=== PATIENT | male | born 1975 | race Caucasian/White ===

== ENCOUNTER 2017-07-20 05:32 | Emergency (ER) | payer OTHER ==
[2017-07-20 05:57] VITALS: BMI 42.5
[2017-07-20] MEDS ORDERED: KETOROLAC TROMETHAMINE 30 MG/1 ML VIAL IVPUSH ONE (06:05)
[2017-07-20] MEDS ORDERED: METOCLOPRAMIDE HCL INJECTION 10 MG/2 ML VIAL IVPUSH ONE (06:05)
[2017-07-20] MEDS ORDERED: SODIUM CHLORIDE 0.9% 1000 ML INFUS.BAG IV ONE (06:05)
--- NOTE | 2017-07-20 06:05 | PDOC ---
History of Present Illness - General Chief Complaint: Headache Stated Complaint: HEADACHE Time Seen by Provider: 07/20/17 05:41 - History of Present Illness Initial Comments: 07/20/17 06:04 CHIEF COMPLAINT: headache HISTORY OF PRESENT ILLNESS: 41 yo M with hx of HLD presents to ED with headache since 7-8 pm last night. Patient stats he has had a history of headaches but tonight it is worse. Patient states the pain is behind his eyes and is covering his face in exam room to shield himself from the light. He denies any dizziness , LOC, weakness, blurry vision. Patient reports taking ibuprofen last night without relief. He vomited one time and still feels nauseous right now. No recent travel or sick contacts. PAST MEDICAL HISTORY: Denies past medical history FAMILY HISTORY: Denies SOCIAL HISTORY: Denies tobacco, alcohol, illicit drug use. SURGICAL HISTORY: Denies ALLERGIES: No known drug allergies REVIEW OF SYSTEMS General/Constitutional: Denies fever or chills. HEENT: Denies change in vision. Denies ear pain or discharge. Denies sore throat. Cardiovascular: Denies chest pain or shortness of breath. Respiratory: Denies cough, wheezing, or hemoptysis. Gastrointestinal: Nausea, 1 episode of vomiting. Genitourinary: Denies dysuria, frequency, or change in urination. Musculoskeletal: Denies joint or muscle swelling or pain. Denies neck or back pain. Skin and breasts: Denies rash or easy bruising. Neurologic:Headache. Denies vertigo, loss of consciousness, or loss of sensation. PHYSICAL EXAM General Appearance: Well-appearing, appropriately dressed. No apparent distress. HEENT: Photophobia. EOMI, PERRLA, normal ENT inspection, normal voice, TMs normal, pharynx normal. No conjunctival pallor. Respiratory/Chest: Lungs CTAB. Cardiovascular: RRR. S1, S2. Gastrointestinal/Abdominal: Normal bowel sounds. Abdomen soft, non-distended. No tenderness or rebound tenderness. No organomegaly, pulsatile mass, guarding , hernia, hepatomegaly, splenomegaly. Musculoskeletal/Extremities: Normal inspection. FROM of all extremities, normal capillary refill. Pelvis Stable. No CVA tenderness. No tenderness to extremities, pedal edema, swelling, erythema or deformity. Integumentary: Appropriate color, dry, warm. No cyanosis, erythema, jaundice or rash Neurologic: ophthalmology surgical technician II-XII intact. Fully oriented, alert. Appropriate mood/affect. Motor strength 5/5. No appreciable EOM palsy, facial droop or sensory deficit.A &Ox3, follow commands, respond appropriately CN2-12: conjugate gaze, pupil round, equal and reactive to light. Visual field full to confrontation. EOMI without nystagmus, pursuit is smooth without saccade. Facial sensation and muscle activation intact bilaterally. Hearing intact bilaterally. Palate elevate symmetrically. Shoulder shrug and neck turn full strength. Tongue protrude midline. Motor: UE and LE strength 5/5 throughout bilaterally. Muscle tone and bulk normal. Cerebellar: Rapid-alternating movement with regular rhythm without bradykinesia. [id number] and [id number] intact bilaterally without dysmetria or overshoot. Gait narrow based. No shuffling. Full hip flexion and knee flexion. Negative Romberg No involuntary movement noted. No pronator drift. No clonus. Past History - Past Medical History Allergies/Adverse Reactions: Allergies Allergy/AdvReac Type Severity Reaction Status Date / Time No Known Allergies Allergy Verified 07/20/17 05:56 Home Medications: Ambulatory Orders NK [No Known Home Medication] 07/20/17 - Suicide/Smoking/Psychosocial Hx Smoking History: Never smoked Have you smoked in the past 12 months: No Information on smoking cessation initiated: No Hx Alcohol Use: No Drug/Substance Use Hx: No *Physical Exam - Vital Signs Last Vital Signs Temp Pulse Resp BP Pulse Ox 97.6 F 103 H 20 177/77 97 07/20/17 05:56 07/20/17 05:56 07/20/17 05:56 07/20/17 05:56 07/20/17 05:56 Medical Decision Making - Medical Decision Making 07/20/17 06:14 41 yo M with hx of HLD presents to ED with headache since 7-8 pm last night. -IVF, Toradol, Reglan, Benadryl Will reassess after administration of meds. Case discussed in detail with oncoming emergency provider including history, physical exam and ancillary studies. In brief, this patient is being seen in the ED for a chief complaint of: headache I have completed the initial assessment interview note and have ordered the following labs: none I have reviewed the following results: none Pending results: reassess after meds Plan for disposition as follows: pending Oncoming MARIE Joseph has assumed care for the patient and will complete the evaluation and treatment. *DC/Admit/Observation/Transfer Diagnosis at time of Disposition: Headache Qualifiers: Headache type: unspecified Headache chronicity pattern: acute headache Intractability: intractable Qualified Code(s): R51 - Headache - Discharge Dispostion Disposition: HOME Condition at time of disposition: Improved - Patient Instructions Printed Discharge Instructions: DI for Headache Additional Instructions: At this time I recommend taking 600 mg of Motrin every 8 hours as needed for discomfort and if no relief may use 975 mg of Tylenol. Also avoid triggers such as bright light, and hot and noisy areas. If symptoms return, Go to the nearest ER.
[2017-07-20] MEDS ORDERED: METOCLOPRAMIDE HCL INJECTION 10 MG/2 ML VIAL ONE (06:44)
[2017-07-20] MEDS ORDERED: KETOROLAC TROMETHAMINE 30 MG/1 ML VIAL ONE (06:44)
--- NOTE | 2017-07-20 07:33 | PDOC ---
*Physical Exam - Vital Signs Last Vital Signs Temp Pulse Resp BP Pulse Ox 97.6 F 103 H 20 177/77 97 07/20/17 05:56 07/20/17 05:56 07/20/17 05:56 07/20/17 05:56 07/20/17 05:56 ED Treatment Course - Medications Given in the ED: ED Medications Discontinued Medications Generic Name Dose Route Start Last Admin Trade Name Annika PRN Reason Stop Dose Admin Diphenhydramine HCl 25 mg 07/20/17 06:05 07/20/17 06:51 Benadryl Injection - IVPUSH 07/20/17 06:06 25 mg ONCE ONE Administration Ketorolac Tromethamine 30 mg 07/20/17 06:05 07/20/17 06:52 Toradol Injection - IVPUSH 07/20/17 06:06 30 mg ONCE ONE Administration Metoclopramide HCl 10 mg 07/20/17 06:05 07/20/17 06:51 Reglan Injection - IVPUSH 07/20/17 06:06 10 mg ONCE ONE Administration Sodium Chloride 1,000 ml 07/20/17 06:05 07/20/17 06:51 Normal Saline - IV 07/20/17 06:06 1,000 ml ONCE ONE Administration Medical Decision Making - Medical Decision Making 07/20/17 07:33 Patient received in sign out from AROLDO Bocanegra. Patient with complaints of headache unrelieved with Motrin and cause him difficulty sleeping and 2 episodes of vomiting. Patient states history of migraines and states was given a medication to decrease his appetite earlier this week. Patient currently asymptomatic. Family at bedside area. patient receiving IV fluids. Will discharge upon completion. 07/20/17 08:02 Patient requesting to go home. IV fluids completed. Will discharge home with recommendations to take 600 mg of Motrin and if no relief may take denies any Tylenol. *DC/Admit/Observation/Transfer Diagnosis at time of Disposition: Headache Qualifiers: Headache type: unspecified Headache chronicity pattern: acute headache Intractability: intractable Qualified Code(s): R51 - Headache; R51 - Headache - Discharge Dispostion Disposition: HOME Condition at time of disposition: Improved - Patient Instructions Printed Discharge Instructions: DI for Headache Additional Instructions: At this time I recommend taking 600 mg of Motrin every 8 hours as needed for discomfort and if no relief may use 975 mg of Tylenol. Also avoid triggers such as bright light, and hot and noisy areas. If symptoms return, Go to the nearest ER.
[2017-07-20 08:20] VITALS: BP 159/76; PULSE 89; TEMP 97.9
== END 2017-07-20 08:22 | disposition home or self-care (01) ==
LOC: JER 05:32
PROC: 3E0333Z Introduction of Anti-inflammatory into Peripheral Vein, Percutaneous Approach (ICD-10-PCS; principal; 2017-07-20)
PROC: 3E033GC Introduction of Other Therapeutic Substance into Peripheral Vein, Percutaneous Approach (ICD-10-PCS; 2017-07-20)
PROC: 3E033GC Introduction of Other Therapeutic Substance into Peripheral Vein, Percutaneous Approach (ICD-10-PCS; 2017-07-20)
DX: R51 Headache (principal)
CPT/HCPCS: 96374; 96375; 99282-25

== ENCOUNTER 2018-02-22 19:53 | Inpatient (IN) | payer OTHER ==
[2018-02-22 20:04] VITALS: BMI 41.2
--- NOTE | 2018-02-22 20:16 | PDOC ---
History of Present Illness - General Chief Complaint: Headache Stated Complaint: HEADACHE Time Seen by Provider: 02/22/18 20:15 - History of Present Illness Initial Comments: 02/22/18 20:28 Mr. Jones is a 42 yo male w/ pmh of HTN who presents for evaluation of headache since 2pm today. He reports he has previously had similar headaches when his blood pressure was out of control and that he believes this is the source of his headache today as his bp was 193/122 today at triage. He used to take medication for his high blood pressure but has not had a primary care provider since he came here from the [facility]. He would like a referral to PCP after today's encounter. Mr. Jones reports he took 2 motrin at 2pm when the pain started but has continued to have pain. He describes the pain as frontal and feels like a pounding headache. He denies any current phono or photo-phobia. Denies this being the worst headache of his life. The patient denies chest pain, shortness of breath, headache and dizziness. Denies fever, chills, nausea, vomit, diarrhea and constipation. Denies dysuria, frequency, urgency and hematuria. Allergies: NKDA Past History - Past Medical History Allergies/Adverse Reactions: Allergies Allergy/AdvReac Type Severity Reaction Status Date / Time No Known Allergies Allergy Verified 02/22/18 20:04 Home Medications: Ambulatory Orders NK [No Known Home Medication] 07/20/17 COPD: No Other medical history: DENIES - Immunization History Immunization Up to Date: No - Suicide/Smoking/Psychosocial Hx Smoking History: Current some day smoker Have you smoked in the past 12 months: No Number of Cigarettes Smoked Daily: 1 Information on smoking cessation initiated: Yes 'Breaking Loose' booklet given: 02/22/18 Hx Alcohol Use: No Drug/Substance Use Hx: No Substance Use Type: None Review of Systems - Review of Systems Comments:: 02/22/18 20:17 GENERAL/CONSTITUTIONAL: No fever or chills. No weakness. HEAD, EYES, EARS, NOSE AND THROAT: No change in vision. No ear pain or discharge. No sore throat. CARDIOVASCULAR: No chest pain or shortness of breath RESPIRATORY: No cough, wheezing, or hemoptysis. GASTROINTESTINAL: No nausea, vomiting, diarrhea or constipation. GENITOURINARY: No dysuria, frequency, or change in urination. MUSCULOSKELETAL: No joint or muscle swelling or pain. No neck or back pain. SKIN: No rash NEUROLOGIC: +Headache as described. No vertigo, loss of consciousness, or change in strength/sensation. ENDOCRINE: No increased thirst. No abnormal weight change HEMATOLOGIC/LYMPHATIC: No anemia, easy bleeding, or history of blood clots. ALLERGIC/IMMUNOLOGIC: No hives or skin allergy. *Physical Exam - Vital Signs Last Vital Signs Temp Pulse Resp BP Pulse Ox 98.3 F 104 H 18 193/122 100 02/22/18 20:00 02/22/18 20:00 02/22/18 20:00 02/22/18 20:00 02/22/18 20:00 - Physical Exam Comments: 02/22/18 20:17 GENERAL: Awake, alert, and fully oriented, in no acute distress HEAD: No signs of trauma, normocephalic, atraumatic EYES: PERRLA, EOMI, sclera anicteric, conjunctiva clear ENT: Auricles normal inspection, hearing grossly normal, nares patent, oropharynx clear without exudates. Moist mucosa NECK: Normal ROM, supple, no lymphadenopathy, JVD, or masses LUNGS: No distress, speaks full sentences, clear to auscultation bilaterally HEART: Regular rate and rhythm, normal S1 and S2, no murmurs, rubs or gallops, peripheral pulses normal and equal bilaterally. ABDOMEN: Soft, nontender, normoactive bowel sounds. No guarding, no rebound. No masses EXTREMITIES: Normal inspection, Normal range of motion, no edema. No clubbing or cyanosis. NEUROLOGICAL: Cranial nerves II through XII grossly intact. Normal speech, normal gait, no focal sensorimotor deficits SKIN: Warm, Dry, normal turgor, no rashes or lesions noted. ED Treatment Course - LABORATORY CBC & Chemistry Diagram: 02/22/18 21:39 02/22/18 21:39 Medical Decision Making - Medical Decision Making 02/22/18 21:09 Mr. Jones is a 42 yo male w/ pmh of HTN who presents for evaluation of headache. Labetalol 5mg given for symptomatic hypertension. Head CT ordered to r /o bleed. EKG/Troponin ordered to r/o end organ damage. 02/23/18 00:24 Repeat BP 203 / 130. IV labetalol given. 02/23/18 01:22 ST changes concerning for end organ damage due to hypertensive emergency. Patient admitted for further evaluation. *DC/Admit/Observation/Transfer Diagnosis at time of Disposition: Hypertensive emergency - Discharge Dispostion Decision to Admit order: Yes - Referrals - Patient Instructions - Post Discharge Activity
[2018-02-22] MEDS ORDERED: METOCLOPRAMIDE HCL INJECTION 10 MG/2 ML VIAL IVPB ONE (20:32)
[2018-02-22] MEDS ORDERED: LABETALOL HCL 5 MG/1 ML (100MG/20 ML VIAL) IVPUSH ONE (20:32)
--- NOTE | 2018-02-22 21:38 | PDOC ---
Attending Attestation - Resident Resident Name: Amadeo Raya - ED Attending Attestation I have performed the following: I have examined & evaluated the patient, The case was reviewed & discussed with the resident, I agree w/resident's findings & plan, Exceptions are as noted - HPI HPI: 02/22/18 22:31 The patient is a 42 year old male, with a significant past medical history of HTN (noncompliant with medication), who presents to the emergency department with, 7 hours of a headache and elevated blood pressure. The patient describes his headache as gradual onset, global in distribution and similar to previous headaches. As per patient, he is from the [place] where he had a PCP but since moving here in December has not gotten one. He reports he has not taken his medication in several days, however, is unaware of the name of his medication. He reports taking Motrin today, without relief. He reports that he does not have an at home blood pressure cuff thus, he was unable to test his blood pressure. He denies any recent photophobia or phonophobia. He denies any recent fevers, chills, or dizziness. He denies any recent nausea, vomit, diarrhea or constipation. He denies any recent chest pain or shortness of breath. He denies any recent dysuria, frequency, urgency or hematuria. Denies focal weakness, numbness, confusion, or visual disturbance Allergies: NKA Past surgical history: None reported. Social History: Nonsmoker. Denies EtOH use and recreational drug use. - Physicial Exam PE: 02/22/18 22:31 GENERAL: Awake, alert, and fully oriented, in no acute distress HEAD: No signs of trauma EYES: PERRLA, EOMI, sclera anicteric, conjunctiva clear ENT: Auricles normal inspection, hearing grossly normal, nares patent, oropharynx clear without exudates. Moist mucosa NECK: Normal ROM, supple, no lymphadenopathy, JVD, or masses LUNGS: Breath sounds equal, clear to auscultation bilaterally. No wheezes, and no crackles HEART: Regular rate and rhythm, normal S1 and S2, no murmurs, rubs or gallops ABDOMEN: Soft, nontender, normoactive bowel sounds. No guarding, no rebound. No masses EXTREMITIES: Normal range of motion, no edema. No clubbing or cyanosis. No cords, erythema, or tenderness NEUROLOGICAL: Normal speech, cranial nerves intact, negative pronator drift, 5/ 5 strength in all 4 extremities, normal sensation to light touch in all 4 extremities, normal cerebellar exam, normal gait, normal reflexes and tone SKIN: Warm, Dry, normal turgor, no rashes or lesions noted. - Medical Decision Making 02/22/18 21:35 42-year-old male with a history of hypertension, recently ran out of medications last week presents emergency Department with diffuse headache with elevated blood pressure. Blood pressure in triage severely elevated to 193/122. Exam within normal limits. Differential includes hypertensive urgency versus hypertensive emergency. Will check labs to evaluate for end organ damage as well as EKG and CT head. 02/23/18 01:[address] depressions laterally. Pt has no CP. Labs wnl, CTH neg for acute path. Given EKG changes, will treat as hypertensive emergency. Pt given IV labetalol and admitted to hospitalist for further mgmt. <Leny Metzger - Last Filed: 02/23/18 06:27> Heart Score/ECG Review #1 02/23/18 01:42 Twelve-lead EKG was performed and reviewed by me. Sinus tachycardia, rate 108. Normal axis. ST depressions in 1, aVL, V5, V6. <Leny Metzger - Last Filed: 02/23/18 06:27> Attestations - Attestations 02/23/18 00:32 Documentation prepared by Malcolm Rivera, acting as medical grade shoemaker for Leny Metzger MD. <Malcolm Rivera - Last Filed: 02/23/18 00:32>
[2018-02-22] MEDS ORDERED: amLODIPine BESYLATE 10 MG TABLET (FP) PO ONE (21:41)
[2018-02-22 21:48] LABS: BASO % 1.2 % (0-2.0); EOS % 1.2 % (0-4.5); HEMATOCRIT 46.2 % (35.4-49); LYMPH % 15.4 % (8-40); MCH 28.7 pg (25.7-33.7); MCHC 32.5 g/dl (32.0-35.9); MEAN CELL VOLUME 88.3 fl (80-96); MONO % 8.5 % (3.8-10.2); NEUT % 73.7 % (42.8-82.8); PLATELET COUNT 283 K/MM3 (134-434); RBC 5.23 M/mm3 (4.00-5.60); RDW 14.7 % (11.9-15.9); WHITE BLOOD COUNT 13.9 K/mm3 (4.0-10.0)
[2018-02-22 22:14] LABS: ALBUMIN 3.7 g/dl (3.4-5.0); ALK PHOS 88 U/L (45-117); ANION GAP 6 (8-16); BILIRUBIN,TOTAL 0.4 mg/dL (0.2-1.0); BLOOD UREA NITROGEN 17 mg/dL (7-18); CALCIUM 8.9 mg/dL (8.5-10.1); CHLORIDE 106 mmol/L (98-107); CO2 29 mmol/L (21-32); CREATININE 1.1 mg/dL (0.7-1.3); GLUCOSE,RANDOM 112 mg/dL (74-106); POTASSIUM 3.9 mmol/L (3.5-5.1); SGOT/AST 41 U/L (15-37); SGPT/ALT 71 U/L (12-78); SODIUM 141 mmol/L (136-145); TOT PROT 7.6 g/dl (6.4-8.2)
[2018-02-22] MEDS ORDERED: METOCLOPRAMIDE HCL INJECTION 10 MG/2 ML VIAL ONE (22:19)
[2018-02-22] MEDS ORDERED: amLODIPine BESYLATE 5 MG TABLET (FP) ONE (22:20)
[2018-02-23] MEDS ORDERED: LABETALOL HCL 5 MG/1 ML (100MG/20 ML VIAL) IVPUSH ONE ×2 (00:25→02:01)
--- NOTE | 2018-02-23 01:13 | HP ---
CHIEF COMPLAINT: OVALLE PCP: in HISTORY OF PRESENT ILLNESS: 42yo [place]ivehi-speaking man from [place] with PMH of HTN and severe obesity who presents with OVALLE since this afternoon. OVALLE started at around 2pm today with gradual in onset, diffuse throughout, and similar to his prior OVALLE. Reports that he is prescribed a blood pressure medication by his [facility] physician, but he stopped taking it several days ago, and does not recall the name. Patient denies any dizziness, nausea, vomiting, focal weakness, blurring vision , or neck stiffness. No recent falls or trauma Denies any chest pain, chest discomfort, or palpitations. No fever, chills, or urinary symptoms. ER course was notable for: (1) VS: 98.3F, HR 104, BP 193/122, RR 16, pSaO2 95% on RA (2) EKG notable for ST depressions in 1, aVL, V5, V6; Trop x1 negative (3) received Amlodopine 10mg PO + Labetolol 10mg IVP --> repeat BP 203/128 (4) Head CT: no acute pathology Recent Travel: in December PAST MEDICAL HISTORY: see HPI PAST SURGICAL HISTORY: Social History: Smoking: denies Alcohol: Drugs: Family History: Allergies No Known Allergies Allergy (Verified 02/22/18 20:04) HOME MEDICATIONS: Home Medications Medication Instructions Recorded NK [No Known Home Medication] 07/20/17 REVIEW OF SYSTEMS CONSTITUTIONAL: Absent: fever, chills, diaphoresis, generalized weakness, malaise, loss of appetite, weight change HEENT: Absent: rhinorrhea, nasal congestion, throat pain, throat swelling, difficulty swallowing, mouth swelling, ear pain, eye pain, visual changes CARDIOVASCULAR: Absent: chest pain, syncope, palpitations, irregular heart rate, lightheadedness , peripheral edema RESPIRATORY: Absent: cough, shortness of breath, dyspnea with exertion, orthopnea, wheezing, stridor, hemoptysis GASTROINTESTINAL: Absent: abdominal pain, abdominal distension, nausea, vomiting, diarrhea, constipation, melena, hematochezia GENITOURINARY: Absent: dysuria, frequency, urgency, hesitancy, hematuria, flank pain, genital pain MUSCULOSKELETAL: Absent: myalgia, arthralgia, joint swelling, back pain, neck pain SKIN: Absent: rash, itching, pallor HEMATOLOGIC/IMMUNOLOGIC: Absent: easy bleeding, easy bruising, lymphadenopathy, frequent infections ENDOCRINE: Absent: unexplained weight gain, unexplained weight loss, heat intolerance, cold intolerance NEUROLOGIC: Absent: headache, focal weakness or paresthesias, dizziness, unsteady gait, seizure, mental status changes, bladder or bowel incontinence PSYCHIATRIC: Absent: anxiety, depression, suicidal or homicidal ideation, hallucinations. PHYSICAL EXAMINATION Vital Signs - 24 hr 02/22/18 20:00 Temperature 98.3 F Pulse Rate 104 H Respiratory 18 Rate Blood Pressure 193/122 O2 Sat by Pulse 100 Oximetry (%) GENERAL: aaox3, nad HEENT: PERRLA, EOMI, sclera anicteric, conjunctiva clear, oropharynx clear without exudates, mmm NECK: supple, no cervical LAD LUNGS: CTAB HEART: tachycardia, regular rhythm, no m/r/g ABDOMEN: soft, obese, NTND, no HSM UPPER EXTREMITIES: 2+ radial pulses, wwp, no edema LOWER EXTREMITIES: 2+ DP pulses, wwp, no edema NEUROLOGICAL: Cranial nerves II-XII intact. Normal speech. Motor strength 5/5 in all four extremities; sensation grossly intact SKIN: Warm, dry, normal turgor, no rashes or lesions noted CBC, BMP 02/22/18 21:39 02/22/18 21:39 Hepatic Panel Total Bilirubin 0.4 mg/dL (0.2-1.0) 02/22/18 21:39 AST 41 U/L (15-37) H 02/22/18 21:39 ALT 71 U/L (12-78) 02/22/18 21:39 Alkaline Phosphatase 88 U/L (45-117) 02/22/18 21:39 Albumin 3.7 g/dl (3.4-5.0) 02/22/18 21:39 Troponin, BNP 02/22/18 22:30 Troponin I 0.02 EKG: Sinus tachycardia, normal axis, ST depressions in 1, aVL, V5, V6, QTc 458 ( no priors to compare) Head CT: (prelim read) No acute brain parenchymal abnormality. No hemorrhage, mass, or acute territorial infarct. Clear visualized paranasal sinuses. Visualized mastoid air cells clear. ASSESSMENT/PLAN: 42yo man with PMH of HTN (medication non-compliant) and severe obesity (BMI 41) who presented with gradual onset headache since earlier today and found to have elevated BP and EKG changes. #hypertensive emergency, s/p 1 x dose Labetolol 10mg IVP with no effect -Give 1 x Labetalol 10mg IVP -Clonidine 0.1mg Q1H PRN if SBP>165 -Give Lopressor 25mg PO now and start Lopressor 50mg PO BID/HCTZ 12.5mg PO daily in AM -If BP remains above 180 in next 1-2hours will add Hydralazine 10mg Q6H PRN for SBP>165 -continuous telemetry monitoring -Serial EKG/Troponins -f/u UA #mild leukocytosis, unclear etiology, could be reactive -Trend CBC/fever curve -f/u UA #FEN PO intake lytes wnl Na controlled diet #DVT PPX - HSQ Q8H #DISPO: telemetry FULL code d/w Dr. Anand Manzano MD PGY1 - Internal Medicine, [employer] Attendant Visit type - Emergency Visit Emergency Visit: Yes ED Registration Date: 02/23/18 Care time: The patient presented to the Emergency Department on the above date and was hospitalized for further evaluation of their emergent condition. - New Patient This patient is new to me today: Yes Date on this admission: 02/24/18 - Critical Care Critical Care patient: No Hospitalist Screening - Colonoscopy Questionnaire Colonoscopy Questionnaire: Colonoscopy Questionnaire - Patient: 50 - 75 years old and never had a screening colonoscopy: No History of colon or rectal polyps, or CA: Unknown History of IBD, Crohn's disease or UC: Unknown History of abdominal radiation therapy as a child: Unknown - Relative: 1 with colon or rectal CA, or polyps at age 60 or younger: Unknown Colon or rectal CA diagnosed at age 45 or younger: Unknown Multiple relatives with colon or rectal CA: Unknown - Outcome: Screening Result: Negative Screen
[2018-02-23] MEDS ORDERED: cloNIDine HCL 0.1 MG TABLET PO PRN ×3 (02:04→05:49)
[2018-02-23] MEDS ORDERED: METOPROLOL TARTRATE 25 MG TABLET (FP) PO ONE (02:05)
[2018-02-23] MEDS ORDERED: LABETALOL HCL 5 MG/1 ML (200MG/40ML VIAL) IVPB ONE (02:12)
[2018-02-23] MEDS ORDERED: ACETAMINOPHEN 325 MG TABLET (FP) PO PRN (02:21)
[2018-02-23] MEDS ORDERED: METOPROLOL TARTRATE 25 MG TABLET (FP) ONE (03:20)
[2018-02-23 03:38] LABS: URINE APPEARANCE CLEAR; URINE BILIRUBIN NEGATIVE (<2.0 mg/dL); URINE BLOOD NEGATIVE (NEGATIVE); URINE COLOR STRAW; URINE GLUCOSE (UA) NEGATIVE (NEGATIVE); URINE KETONE NEGATIVE (NEGATIVE); URINE LEUK ESTERASE NEGATIVE (NEGATIVE); URINE NITRITE NEGATIVE (NEGATIVE); URINE UROBILINOGEN NEGATIVE mg/dL (0.2-1.0)
[2018-02-23 03:39] LABS: URINE PROTEIN 2+ (NEGATIVE)
[2018-02-23 03:45] LABS: URINE MUCUS RARE
--- NOTE | 2018-02-23 04:10 | PN ---
Teaching Attending Note Name of Resident: Yojana Manzano ATTENDING PHYSICIAN STATEMENT I saw and evaluated the patient. I reviewed the resident's note and discussed the case with the resident. I agree with the resident's findings and plan as documented. SUBJECTIVE: Patient is a 42 year old Italian-speaking man from [facility] [place] with chief complaint of headache for one day. Noted to have very high BP (>201/100) on arrival in the ER. He has history of HTN and obesity and has been off his antihypertensive medications for about ?1 week. Noted to have leukocytosis, elevated CPK, nonspecific ST depression and poor response to the initial dose of 10 mg IV labetalol. OBJECTIVE: Alert and in no acute respiratory distress. Obese. Still has headache but no photophobia or blurring of vision. Vital Signs Period Temp Pulse Resp BP Sys/Gonzalez Pulse Ox Last 24 Hr 98.3 F 104 18 193/122 100 HEENT: No Jaundice, eye redness or discharge, PERRLA, EOMI. Fundi not visualized. External ears are normal and hearing is grossly intact. No nasal discharge. Neck: Supple, nontender. No palpable adenopathy or thyromegaly. No JVD Chest: Good effort. Clear to auscultation and percussion. Heart: Regular. No S3, rub or murmur Abdomen: Not distended, soft, nontender and no HSM. No rebound or guarding. Normoactive bowel sounds. Ext: Peripheral pulses intact. No leg edema. Skin: Warm and dry. No petechiae, rash or ecchymosis. Neuro: Alert. Oriented x3. CN 2-12 grossly intact. Sensation grossly intact in all four extremities and DTR are symmetric. Home Medications Medication Instructions Recorded NK [No Known Home Medication] 07/20/17 Current Medications Generic Name Dose Route Start Last Admin Trade Name Freq PRN Reason Stop Dose Admin Acetaminophen 650 mg 02/23/18 02:21 Tylenol - PO Q6H PRN PAIN LEVEL 1-5 Clonidine 0.1 mg 02/23/18 02:29 Catapres - PO Q1H PRN HYPERTENSION Heparin Sodium (Porcine) 5,000 unit 02/23/18 06:00 Heparin - SQ TID [facility] Laboratory Results - last 24 hr 02/22/18 02/22/18 02/22/18 21:39 21:39 22:30 WBC 13.9 H RBC 5.23 Hgb 15.0 Hct 46.2 MCV 88.3 MCH 28.7 MCHC 32.5 RDW 14.7 Plt Count 283 MPV 10.0 Neutrophils % 73.7 Lymphocytes % 15.4 Monocytes % 8.5 Eosinophils % 1.2 Basophils % 1.2 Sodium 141 Potassium 3.9 Chloride 106 Carbon Dioxide 29 Anion Gap 6 L BUN 17 Creatinine 1.1 Creat Clearance w eGFR > 60 Random Glucose 112 H Calcium 8.9 Total Bilirubin 0.4 AST 41 H ALT 71 Alkaline Phosphatase 88 Creatine Kinase 414 H Creatine Kinase Index 0.6 CK-MB (CK-2) 2.706 Troponin I 0.02 Total Protein 7.6 Albumin 3.7 Urine Color Urine Appearance Urine pH Ur Specific [place] Urine Protein Urine Glucose (UA) Urine Ketones Urine Blood Urine Nitrite Urine Bilirubin Urine Urobilinogen Ur Leukocyte Esterase Urine WBC (Auto) Urine RBC (Auto) Urine Mucus 02/23/18 03:20 WBC RBC Hgb Hct MCV MCH MCHC RDW Plt Count MPV Neutrophils % Lymphocytes % Monocytes % Eosinophils % Basophils % Sodium Potassium Chloride Carbon Dioxide Anion Gap BUN Creatinine Creat Clearance w eGFR Random Glucose Calcium Total Bilirubin AST ALT Alkaline Phosphatase Creatine Kinase Creatine Kinase Index CK-MB (CK-2) Troponin I Total Protein Albumin Urine Color Straw Urine Appearance Clear Urine pH 6.0 Ur Specific [place] 1.011 Urine Protein 2+ H Urine Glucose (UA) Negative Urine Ketones Negative Urine Blood Negative Urine Nitrite Negative Urine Bilirubin Negative Urine Urobilinogen Negative Ur Leukocyte Esterase Negative Urine WBC (Auto) <1 Urine RBC (Auto) <1 Urine Mucus Rare ASSESSMENT AND PLAN: 1. Hypertensive urgency - Admit as an observation case to tlemetry, give him another dose of 10 mg IV labetalol, and begin an oral regimen of Lopressor 50 mg q 12hrs, HCTZ 12.5 mg qd and clonidine 0.1 mg po q 1 hr PRN. If his SBP remains >180 mHg one hour later, will start IV cardene drip. Will get serial EKGs, repeat troponin, ECHO, and get an MRI/MRA of his brain if headache persists. Give low salt diet and intense patient education stressing lifestyle modification and nonpharmacologic measures to treat hypertension. 2. Leukocytosis - Likely stress related. No other supporting evidence of infection. Will repeat CBC. 3. Rhabdomyoysis - Monitor CPK and urge increased oral fluids for now. 4. Secondary hypertension - Upon discharge will need outpatient workup to exclude secondary hypertension. 5. DVT prophylaxis - Heparin 5000u sq tid 6. Advance directives - Full code
[2018-02-23] MEDS ORDERED: LORazepam 1 MG TABLET PO ONE (05:29)
[2018-02-23] MEDS ORDERED: hydrALAZINE HCL 20 MG/ML VIAL IVPUSH PRN (05:30)
[2018-02-23] MEDS ORDERED: PROCHLORPERAZINE MALEATE 5 MG TABLET PO ONE (06:14)
[2018-02-23 06:39] LABS: EOS % 0.6 % (0-4.5); HEMATOCRIT 47.7 % (35.4-49); HEMOGLOBIN 16.1 GM/dL (11.7-16.9); LYMPH % 10.3 % (8-40); MCH 29.7 pg (25.7-33.7); MCHC 33.8 g/dl (32.0-35.9); MEAN CELL VOLUME 87.8 fl (80-96); MEAN PLT VOLUME 9.7 fl (7.5-11.1); MONO % 8.2 % (3.8-10.2); NEUT % 79.9 % (42.8-82.8); PLATELET COUNT 253 K/MM3 (134-434); RBC 5.43 M/mm3 (4.00-5.60); RDW 14.9 % (11.9-15.9); WHITE BLOOD COUNT 17.4 K/mm3 (4.0-10.0)
[2018-02-23] MEDS ORDERED: LORazepam 0.5 MG TABLET ONE (06:54)
[2018-02-23] MEDS ORDERED: PROCHLORPERAZINE MALEATE 5 MG TABLET ONE (06:54)
[2018-02-23 07:17] LABS: CHLORIDE 104 mmol/L (98-107); SODIUM 139 mmol/L (136-145)
[2018-02-23 07:40] LABS: ALBUMIN 3.8 g/dl (3.4-5.0); ALK PHOS 91 U/L (45-117); ANION GAP 9 (8-16); BILIRUBIN,TOTAL 0.7 mg/dL (0.2-1.0); BLOOD UREA NITROGEN 14 mg/dL (7-18); CALCIUM 8.9 mg/dL (8.5-10.1); CO2 26 mmol/L (21-32); CREATININE 1.1 mg/dL (0.7-1.3); GLUCOSE,RANDOM 122 mg/dL (74-106); SGPT/ALT 66 U/L (12-78)
[2018-02-23 07:55] LABS: POTASSIUM 4.1 mmol/L (3.5-5.1); SGOT/AST 45 U/L (15-37)
[2018-02-23] MEDS ORDERED: METOPROLOL TARTRATE 50 MG TABLET (FP) PO SCH (10:00)
[2018-02-23] MEDS ORDERED: HYDROCHLOROTHIAZIDE 12.5 MG CAPSULE (FP) PO SCH (10:00)
[2018-02-23] MEDS: HEPARIN NA (PORCINE) 5,000 UNITS/ML 1ML VIAL SQ SCH ×2 (10:49→15:29)
[2018-02-23 11:48] VITALS: TEMP 98
--- NOTE | 2018-02-23 14:39 | PN ---
Teaching Attending Note Name of Resident: Osmani Gar ATTENDING PHYSICIAN STATEMENT I saw and evaluated the patient. I reviewed the resident's note and discussed the case with the resident. I agree with the resident's findings and plan as documented. SUBJECTIVE:c/o frontal OVALLE. some improvement. denies CP, SOB, fever, chills, cough, N/V/C/D, dysuria OBJECTIVE: Last Vital Signs Temp Pulse Resp BP Pulse Ox 98 F 104 H 18 138/80 98 02/23/18 11:47 02/23/18 12:47 02/23/18 07:06 02/23/18 11:47 02/23/18 11:47 General NAD HEENT EOMI, PERRL. no oticscope available to check for papilledema CV S1 S2 RRR no murmur/rub/gallop Lungs CTA B/L no wheezing/rales/rhonchi Abdomen soft NT/ND obese Extremities no pedal edema ASSESSMENT AND PLAN: 42yo M with PMH HTn and obesity presented to the Er with OVALLE 1. HTN urgency- treated with labetolol 10mg IV x2, norvasc 10mg and metoprolol 25mg with improvement. CT head negative for acute pathology. states he only took 1 medication (does not recall name) for BP in DR but has not taken it in at least a week 2. leukocytosis- no signs of infection. UA negative. will check UA. leukocytosis is trending up would cont to trend for now. would hold abx treatment 3. Elevated CPK- not in rhabdo. would hold on IVF at this time 4. DVT ppx- hep sq
--- NOTE | 2018-02-23 15:32 | PN ---
Physical Exam: SUBJECTIVE: Patient seen and examined at bedside. This am, pt stated headache was subsiding. This afternoon, it reportedly recurred. OBJECTIVE: Vital Signs Period Temp Pulse Resp BP Sys/Gonzalez Pulse Ox Last 24 Hr 98 F-98.3 F 104-123 18-18 138-193/80-122 97-100 GENERAL: The patient is awake, alert, and fully oriented, in no acute distress. HEAD: Normal with no signs of trauma. EYES: PERRL, extraocular movements intact, sclera anicteric, conjunctiva clear. No ptosis. ENT: oropharynx clear without exudates, moist mucous membranes. NECK: Trachea midline, full range of motion, supple. LUNGS: Breath sounds equal, clear to auscultation bilaterally, no wheezes, no crackles, no accessory muscle use. HEART: Regular rate and rhythm, S1, S2 without murmur, rub or gallop. ABDOMEN: Soft, nontender, nondistended, normoactive bowel sounds, no guarding, no rebound, no hepatosplenomegaly, no masses. EXTREMITIES: 2+ pulses, warm, well-perfused, no edema. NEUROLOGICAL: Cranial nerves II through XII intact. No focal neural deficits. Motor 5/5 throughout. Sensation intact throughout. Normal speech, gait not observed. PSYCH: Normal mood, normal affect. SKIN: Warm, dry, normal turgor, no rashes or lesions noted Laboratory Results - last 24 hr 02/22/18 02/22/18 02/22/18 21:39 21:39 22:30 WBC 13.9 H RBC 5.23 Hgb 15.0 Hct 46.2 MCV 88.3 MCH 28.7 MCHC 32.5 RDW 14.7 Plt Count 283 MPV 10.0 Neutrophils % 73.7 Lymphocytes % 15.4 Monocytes % 8.5 Eosinophils % 1.2 Basophils % 1.2 Sodium 141 Potassium 3.9 Chloride 106 Carbon Dioxide 29 Anion Gap 6 L BUN 17 Creatinine 1.1 Creat Clearance w eGFR > 60 Random Glucose 112 H Calcium 8.9 Total Bilirubin 0.4 AST 41 H ALT 71 Alkaline Phosphatase 88 Creatine Kinase 414 H Creatine Kinase Index 0.6 CK-MB (CK-2) 2.706 Troponin I 0.02 Total Protein 7.6 Albumin 3.7 Urine Color Urine Appearance Urine pH Ur Specific [place] Urine Protein Urine Glucose (UA) Urine Ketones Urine Blood Urine Nitrite Urine Bilirubin Urine Urobilinogen Ur Leukocyte Esterase Urine WBC (Auto) Urine RBC (Auto) Urine Mucus 02/23/18 02/23/18 02/23/18 03:20 06:30 06:30 WBC 17.4 H RBC 5.43 Hgb 16.1 Hct 47.7 MCV 87.8 MCH 29.7 MCHC 33.8 RDW 14.9 Plt Count 253 MPV 9.7 Neutrophils % 79.9 Lymphocytes % 10.3 D Monocytes % 8.2 Eosinophils % 0.6 Basophils % 1.0 Sodium 139 Potassium 4.1 Chloride 104 Carbon Dioxide 26 Anion Gap 9 BUN 14 Creatinine 1.1 Creat Clearance w eGFR > 60 Random Glucose 122 H Calcium 8.9 Total Bilirubin 0.7 D AST 45 H ALT 66 Alkaline Phosphatase 91 Creatine Kinase 476 H Creatine Kinase Index 0.6 CK-MB (CK-2) 3.138 Troponin I 0.03 D Total Protein 8.0 Albumin 3.8 Urine Color Straw Urine Appearance Clear Urine pH 6.0 Ur Specific [place] 1.011 Urine Protein 2+ H Urine Glucose (UA) Negative Urine Ketones Negative Urine Blood Negative Urine Nitrite Negative Urine Bilirubin Negative Urine Urobilinogen Negative Ur Leukocyte Esterase Negative Urine WBC (Auto) <1 Urine RBC (Auto) <1 Urine Mucus Rare 02/23/18 12:18 WBC RBC Hgb Hct MCV MCH MCHC RDW Plt Count MPV Neutrophils % Lymphocytes % Monocytes % Eosinophils % Basophils % Sodium Potassium Chloride Carbon Dioxide Anion Gap BUN Creatinine Creat Clearance w eGFR Random Glucose Calcium Total Bilirubin AST ALT Alkaline Phosphatase Creatine Kinase 426 H Creatine Kinase Index 0.5 CK-MB (CK-2) 2.287 Troponin I 0.03 Total Protein Albumin Urine Color Urine Appearance Urine pH Ur Specific [place] Urine Protein Urine Glucose (UA) Urine Ketones Urine Blood Urine Nitrite Urine Bilirubin Urine Urobilinogen Ur Leukocyte Esterase Urine WBC (Auto) Urine RBC (Auto) Urine Mucus Active Medications Generic Name Dose Route Start Last Admin Trade Name Freq PRN Reason Stop Dose Admin Acetaminophen 650 mg 02/23/18 02:21 Tylenol - PO Q6H PRN PAIN LEVEL 1-5 Clonidine 0.1 mg 02/23/18 05:49 Catapres - PO Q1H PRN HYPERTENSION Heparin Sodium (Porcine) 5,000 unit 02/23/18 06:00 02/23/18 10:49 Heparin - SQ 5,000 unit TID DENISE Administration Hydralazine HCl 10 mg 02/23/18 05:30 Apresoline Injection - IVPUSH Q6H PRN HYPERTENSION Hydrochlorothiazide 12.5 mg 02/23/18 10:00 02/23/18 10:49 Hctz - PO 12.5 mg DAILY DENISE Administration Metoprolol Tartrate 50 mg 02/23/18 10:00 02/23/18 10:49 Lopressor - PO 50 mg BID DENISE Administration ASSESSMENT/PLAN: Pt is a 42 y/o M with PMH HTN and severe obesity who presented to the ED with headache. Pt was admitted for hypertensive urgency. #Hypertensive urgency -likely 2/2 noncompliance -Trop neg, it systems engineer normal, CK mildly elevated but not to range of rhabdo. CT head negative -BP was controlled with labetalol, lopressor, hctz -monitor BP -f/u CXR #leukocytosis -elevated WBC -climbing -no obvious infection -? reactive #Tachycardia -unclear etiology -?2/2 OVALLE -f/u TSH #FEN -not on fluids -lytes wnl -Na controlled diet #PPx -Hep SubQ #Dispo -Admitted for hypertensive urgency Osmani Gar MD PGY-1 IM Visit type - Emergency Visit Emergency Visit: Yes ED Registration Date: 02/23/18 Care time: The patient presented to the Emergency Department on the above date and was hospitalized for further evaluation of their emergent condition. - New Patient This patient is new to me today: Yes Date on this admission: 02/23/18 - Critical Care Critical Care patient: No - Discharge Referral Referred to [facility] Med P.C.: No
[2018-02-23 16:15] VITALS: BP 140/90; PULSE 107
--- NOTE | 2018-02-23 17:31 | DS ---
Physical Exam: SUBJECTIVE: Patient seen and examined at bedside. This am, pt stated headache was subsiding. This afternoon, it reportedly recurred. OBJECTIVE: Vital Signs Period Temp Pulse Resp BP Sys/Gonzalez Pulse Ox Last 24 Hr 98 F-98.3 F 104-123 18-18 138-193/80-122 97-100 PHYSICAL EXAM GENERAL: The patient is awake, alert, and fully oriented, in no acute distress. HEAD: Normal with no signs of trauma. EYES: PERRL, extraocular movements intact, sclera anicteric, conjunctiva clear. No ptosis. ENT: oropharynx clear without exudates, moist mucous membranes. NECK: Trachea midline, full range of motion, supple. LUNGS: Breath sounds equal, clear to auscultation bilaterally, no wheezes, no crackles, no accessory muscle use. HEART: Regular rate and rhythm, S1, S2 without murmur, rub or gallop. ABDOMEN: Soft, nontender, nondistended, normoactive bowel sounds, no guarding, no rebound, no hepatosplenomegaly, no masses. EXTREMITIES: 2+ pulses, warm, well-perfused, no edema. NEUROLOGICAL: Cranial nerves II through XII intact. No focal neural deficits. Motor 5/5 throughout. Sensation intact throughout. Normal speech, gait not observed. PSYCH: Normal mood, normal affect. SKIN: Warm, dry, normal turgor, no rashes or lesions noted LABS Laboratory Results - last 24 hr 02/22/18 02/22/18 02/22/18 21:39 21:39 22:30 WBC 13.9 H RBC 5.23 Hgb 15.0 Hct 46.2 MCV 88.3 MCH 28.7 MCHC 32.5 RDW 14.7 Plt Count 283 MPV 10.0 Neutrophils % 73.7 Lymphocytes % 15.4 Monocytes % 8.5 Eosinophils % 1.2 Basophils % 1.2 Sodium 141 Potassium 3.9 Chloride 106 Carbon Dioxide 29 Anion Gap 6 L BUN 17 Creatinine 1.1 Creat Clearance w eGFR > 60 Random Glucose 112 H Calcium 8.9 Total Bilirubin 0.4 AST 41 H ALT 71 Alkaline Phosphatase 88 Creatine Kinase 414 H Creatine Kinase Index 0.6 CK-MB (CK-2) 2.706 Troponin I 0.02 Total Protein 7.6 Albumin 3.7 Urine Color Urine Appearance Urine pH Ur Specific [place] Urine Protein Urine Glucose (UA) Urine Ketones Urine Blood Urine Nitrite Urine Bilirubin Urine Urobilinogen Ur Leukocyte Esterase Urine WBC (Auto) Urine RBC (Auto) Urine Mucus 02/23/18 02/23/18 02/23/18 03:20 06:30 06:30 WBC 17.4 H RBC 5.43 Hgb 16.1 Hct 47.7 MCV 87.8 MCH 29.7 MCHC 33.8 RDW 14.9 Plt Count 253 MPV 9.7 Neutrophils % 79.9 Lymphocytes % 10.3 D Monocytes % 8.2 Eosinophils % 0.6 Basophils % 1.0 Sodium 139 Potassium 4.1 Chloride 104 Carbon Dioxide 26 Anion Gap 9 BUN 14 Creatinine 1.1 Creat Clearance w eGFR > 60 Random Glucose 122 H Calcium 8.9 Total Bilirubin 0.7 D AST 45 H ALT 66 Alkaline Phosphatase 91 Creatine Kinase 476 H Creatine Kinase Index 0.6 CK-MB (CK-2) 3.138 Troponin I 0.03 D Total Protein 8.0 Albumin 3.8 Urine Color Straw Urine Appearance Clear Urine pH 6.0 Ur Specific [place] 1.011 Urine Protein 2+ H Urine Glucose (UA) Negative Urine Ketones Negative Urine Blood Negative Urine Nitrite Negative Urine Bilirubin Negative Urine Urobilinogen Negative Ur Leukocyte Esterase Negative Urine WBC (Auto) <1 Urine RBC (Auto) <1 Urine Mucus Rare 02/23/18 12:18 WBC RBC Hgb Hct MCV MCH MCHC RDW Plt Count MPV Neutrophils % Lymphocytes % Monocytes % Eosinophils % Basophils % Sodium Potassium Chloride Carbon Dioxide Anion Gap BUN Creatinine Creat Clearance w eGFR Random Glucose Calcium Total Bilirubin AST ALT Alkaline Phosphatase Creatine Kinase 426 H Creatine Kinase Index 0.5 CK-MB (CK-2) 2.287 Troponin I 0.03 Total Protein Albumin Urine Color Urine Appearance Urine pH Ur Specific [place] Urine Protein Urine Glucose (UA) Urine Ketones Urine Blood Urine Nitrite Urine Bilirubin Urine Urobilinogen Ur Leukocyte Esterase Urine WBC (Auto) Urine RBC (Auto) Urine Mucus HOSPITAL COURSE: Date of Admission:02/23/18 Date of Discharge: 02/23/18 Pt is a 42 y/o M with PMH HTN and severe obesity who presented to the ED with headache. Pt was admitted for hypertensive urgency. BP elevation was likely 2/2 noncompliance and was controlled with labetalol, lopressor, hctz. 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 CT head was negative. CXR was ordered. Pt was found to have leukocytosis without obvious source. Pt was found to have tachycardia of unclear etiology. TSH was ordered. Pt decided to leave AMA during his workup. Risks of leaving were explained in detail. Pt left anyway. Minutes to complete discharge: 30 Discharge Summary Reason For Visit: HYPERTENSIVE EMERGENCY Current Active Problems Hypertensive emergency (Acute) Condition: Good - Instructions Diet, Activity, Other Instructions: You were observed in the hospital for hypertensive urgency. You need to make sure you take your medications as prescribed. Do not skip doses. You need to follow up with your primary care doctor. You need to have your blood pressure monitored as an out patient. If you develop new symptoms or if your symptoms recur, please return to the emergency department. Disposition: HOME - Home Medications Comprehensive Discharge Medication List: Ambulatory Orders Aspirin [Ecotrin] 81 mg PO DAILY #30 tablet. 02/23/18 Cyclobenzaprine HCl [Flexeril 10 mg] 10 mg PO DAILY #30 tablet 02/23/18 Dapagliflozin Propanediol [Farxiga] 5 mg PO DAILY #30 tablet 02/23/18 Ezetimibe [Zetia] 10 mg PO DAILY #30 tablet 02/23/18 Hydrochlorothiazide [Hctz -] 12.5 mg PO DAILY #30 cap 02/23/18 Liraglutide [Victoza -] 1.2 mg SQ DAILY@0700 #1 pen.injctr 02/23/18 Metoprolol Tartrate 50 mg PO BID #60 tablet 02/23/18 Paroxetine HCl 10 mg PO DAILY #30 tablet 02/23/18 Pravastatin Sodium 20 mg PO HS #30 tablet 02/23/18 This patient is new to me today: Yes Date on this admission: 02/23/18 Emergency Visit: Yes ED Registration Date: 02/23/18 Care time: The patient presented to the Emergency Department on the above date and was hospitalized for further evaluation of their emergent condition. Critical Care patient: No - Discharge Referral [facility]erred [facility] Med P.C.: No
--- NOTE | 2018-02-23 23:43 | EKG ---
Test Reason : Blood Pressure : / mmHG Vent. Rate : 108 BPM Atrial Rate : 108 BPM P-R Int : 154 ms QRS Dur : 094 ms QT Int : 342 ms P-R-T Axes : 053 036 121 degrees QTc Int : 458 ms SINUS TACHYCARDIA ABNORMAL ECG NO PREVIOUS ECGS AVAILABLE Confirmed by MOJGAN KLINE MD ([id number]) on 02/23/2018 11:43:32 PM Referred By: Confirmed By:MOJGAN KLINE MD
== END 2018-02-23 14:10 | disposition home or self-care (01) | DRG 199 ==
LOC: JER 19:53 → JERBED 02-23 01:20
PROVIDERS: ADMIT Internal Medicine; ATTEND Internal Medicine
DX: I16.1 Hypertensive emergency (principal); R51 Headache; F17.210 Nicotine dependence, cigarettes, uncomplicated; Z91.14 Patient's other noncompliance with medication regimen; E66.01 Morbid (severe) obesity due to excess calories; Z68.41 Body mass index [BMI] 40.0-44.9, adult; R00.0 Tachycardia, unspecified; D72.829 Elevated white blood cell count, unspecified
CPT/HCPCS: 36415; 70450-TC; 80053; 81003; 81015; 82550; 82553; 84484; 85025; 93005; 93010; 93306-TC; 99283-25; J1644

== ENCOUNTER 2018-08-05 05:20 | Observation (INO) | payer OTHER ==
--- NOTE | 2018-08-05 06:31 | PDOC ---
History of Present Illness - General History Source: Patient Exam Limitations: No Limitations - History of Present Illness Initial Comments: 08/05/18 06:31 Chinese Interpretor # [id number] (Michael) The patient is a 42 year old male, with a significant past medical history of hypertension (poorly controlled), who presents to the emergency department with headache and high blood pressure with associated nausea since 7pm last night. He denies nausea at this time. He states he has not been on his BP medications in about 3-4 months because he ran out and never made an appointment at the clinic. He states he took Advil without relief of his headache. The patient denies chest pain, shortness of breath, headache and dizziness. The patient denies fever, chills, nausea, vomit, diarrhea and constipation. The patient denies dysuria, frequency, urgency and hematuria. Allergies: NKDA <Viji Moreno - Last Filed: 08/05/18 06:31> - General History Source: Patient Exam Limitations: No Limitations <Dang Chavez - Last Filed: 08/05/18 19:57> - General Chief Complaint: Blood Pressure Problem Stated Complaint: BLOOD PRESSURE PROBLEM Time Seen by Provider: 08/05/18 05:40 Past History <Viji Moreno - Last Filed: 08/05/18 06:31> - Past Medical History COPD: No - Immunization History Immunization Up to Date: No - Suicide/Smoking/Psychosocial Hx Smoking History: Never smoked Have you smoked in the past 12 months: No Number of Cigarettes Smoked Daily: 1 'Breaking Loose' booklet given: 02/22/18 Hx Alcohol Use: No Drug/Substance Use Hx: No Substance Use Type: None <Dang Chavez - Last Filed: 08/05/18 19:57> - Past Medical History Allergies/Adverse Reactions: Allergies Allergy/AdvReac Type Severity Reaction Status Date / Time No Known Allergies Allergy Verified 02/22/18 20:04 Home Medications: Ambulatory Orders Aspirin [Ecotrin] 81 mg PO DAILY #30 tablet. 02/23/18 Cyclobenzaprine HCl [Flexeril 10 mg] 10 mg PO DAILY #30 tablet 02/23/18 Dapagliflozin Propanediol [Farxiga] 5 mg PO DAILY #30 tablet 02/23/18 Ezetimibe [Zetia] 10 mg PO DAILY #30 tablet 02/23/18 Hydrochlorothiazide [Hctz -] 12.5 mg PO DAILY #30 cap 02/23/18 Liraglutide [Victoza -] 1.2 mg SQ DAILY@0700 #1 pen.injctr 02/23/18 Metoprolol Tartrate 50 mg PO BID #60 tablet 02/23/18 Paroxetine HCl 10 mg PO DAILY #30 tablet 02/23/18 Pravastatin Sodium 20 mg PO HS #30 tablet 02/23/18 Hydrochlorothiazide [Hctz -] 12.5 mg PO DAILY #30 cap 08/05/18 Metoprolol Tartrate 50 mg PO BID #30 tablet 08/05/18 Review of Systems - Review of Systems Able to Perform ROS?: Yes Comments:: 08/05/18 06:32 Constitutional: no fevers or chills. HEENT: no headache or dizziness. No congestion. No visual/hearing disturbances. CVS: no cp or syncope. Resp: no sob. No cough. Abdomen: (+) nausea. no abdominal pain, or vomiting. Genitourinary: no urinary sx, hematuria. MUSCULOSKELETAL: No joint pain and swelling. No neck or back pain. SKIN: no redness or skin changes, no discharge, no rash. No wounds. Hematologic: no easy bruising/bleeding. NEUROLOGIC: (+) headache, No dizziness, LOC or altered mental status. No weakness, numbness or tingling. All other systems reviewed and negative, or as documented in HPI. <Viji Moreno - Last Filed: 08/05/18 06:31> *Physical Exam - Vital Signs Last Vital Signs Temp Pulse Resp BP Pulse Ox 97.8 F 90 19 177/123 H 100 08/05/18 05:25 08/05/18 05:25 08/05/18 05:25 08/05/18 05:25 08/05/18 05:25 - Physical Exam Comments: 08/05/18 06:32 General: Well appearing, awake and alert, NAD. HEENT: NCAT, PERRL, EOMI, clear conjunctiva, anicteric, moist mucus membranes, clear oropharynx, no oral lesions.. Neck: neck supple, FROM Resp: CTAB, normal and even respirations, no respiratory distress CVS: RRR, no murmurs, 2+ peripheral pulses throughout, no peripheral edema Abdomen: soft, NTND, no peritoneal signs. Back: nontender, normal inspection and ROM MSK: no edema, BRYSON x4, ROM intact. No clubbing or cyanosis. normal bulk and tone. Extrem: no calf tenderness Neuro: alert, oriented appropriately; no focal neurologic deficits Skin: warm and well perfused, cap refill <2 sec, normal color <Viji Moreno - Last Filed: 08/05/18 06:31> - Vital Signs Last Vital Signs Temp Pulse Resp BP Pulse Ox 97.8 F 90 19 177/123 H 100 08/05/18 05:25 08/05/18 05:25 08/05/18 05:25 08/05/18 05:25 08/05/18 05:25 <Dang Chavez - Last Filed: 08/05/18 19:57> ED Treatment Course - LABORATORY CBC & Chemistry Diagram: 08/05/18 06:53 08/05/18 06:53 <Dang Chavez - Last Filed: 08/05/18 19:57> Medical Decision Making - Medical Decision Making 08/05/18 06:34 42 YOM with uncontrolled htn, p/w headache, not taking his meds x 3-4 months. Vital signs reviewed, hypertensive. mild hardy noted, but no neuro deficits, clear mentation and speech. no cp or sob Prior notes reviewed, including admissions, discharges and consultations. laboratory results and imaging reviewed, basic labs and lytes wnl, normal Cr. UA_proteinuria present. Cardiac panel_neg trop EKG normal sinus rhythm, no interval abnormalities, narrow QRS, WT depressions in I, AVL, TWI in I, AVL, V5-6, small elevations upsloping appearance in III only, which are all unchanged from prior EKG. ED course: no acute events, remained stable and well appearing. Clinically improved after interventions, including PO metoprolol and hctz. antihypertensives were obtained from prior note when he was admitted for htn emergency in 2017, February. metoprolol 50mg BID and hctz 12.5mg daily per prior records and regimen will recheck bp after meds Dispo: s/o pending reeval, bp recheck and ultimate dispo 08/05/18 19:57 <Dang Chavez - Last Filed: 08/05/18 19:57> *DC/Admit/Observation/Transfer - Attestations Scribe Attestion: 08/05/18 06:32 Documentation prepared by Viji Moreno, acting as medical language specialist for Dang Chavez MD <Viji Moreno - Last Filed: 08/05/18 06:31> - Attestations Physician Attestion: 08/05/18 06:34 I, Dang Chavez MD, attest that this document has been prepared under my direction and personally reviewed by me in its entirety. I further attest, that it accurately reflects all work, treatment, procedures and medical decision -making performed by me. <Dang Chavez - Last Filed: 08/05/18 19:57> Diagnosis at time of Disposition: Hypertensive emergency Headache Qualifiers: Headache type: tension-type Headache chronicity pattern: acute headache Intractability: not intractable Qualified Code(s): G44.209 - Tension-type headache, unspecified, not intractable - Discharge Dispostion Condition at time of disposition: Fair
[2018-08-05] MEDS ORDERED: METOPROLOL TARTRATE 50 MG TABLET (FP) PO ONE (06:33)
[2018-08-05] MEDS ORDERED: HYDROCHLOROTHIAZIDE 12.5 MG CAPSULE (FP) PO ONE (06:33)
[2018-08-05] MEDS ORDERED: METOPROLOL TARTRATE 50 MG TABLET (FP) ONE (06:43)
[2018-08-05] MEDS ORDERED: HYDROCHLOROTHIAZIDE 25 MG TABLET (FP) ONE (06:43)
[2018-08-05 07:14] LABS: URINE APPEARANCE CLEAR; URINE BILIRUBIN NEGATIVE (<2.0 mg/dL); URINE COLOR LTYELLOW; URINE GLUCOSE (UA) NEGATIVE (NEGATIVE); URINE KETONE NEGATIVE (NEGATIVE); URINE LEUK ESTERASE NEGATIVE (NEGATIVE); URINE NITRITE NEGATIVE (NEGATIVE); URINE PROTEIN 3+ (NEGATIVE); URINE UROBILINOGEN NEGATIVE mg/dL (0.2-1.0)
[2018-08-05 07:27] LABS: EOS % 1.6 % (0-4.5); HEMATOCRIT 50.2 % (35.4-49); HEMOGLOBIN 16.6 GM/dL (11.7-16.9); LYMPH % 23.4 % (8-40); MEAN CELL VOLUME 87.6 fl (80-96); MEAN PLT VOLUME 10.3 fl (7.5-11.1); MONO % 8.9 % (3.8-10.2); NEUT % 65.1 % (42.8-82.8); PLATELET COUNT 258 K/MM3 (134-434); RBC 5.73 M/mm3 (4.00-5.60); RDW 14.3 % (11.9-15.9); WHITE BLOOD COUNT 10.2 K/mm3 (4.0-10.0)
[2018-08-05 07:33] LABS: ALBUMIN 3.8 g/dl (3.4-5.0); ALK PHOS 99 U/L (45-117); ANION GAP 6 MMOL/L (8-16); BILIRUBIN,TOTAL 0.4 mg/dL (0.2-1); BLOOD UREA NITROGEN 10 mg/dL (7-18); CALCIUM 9.3 mg/dL (8.5-10.1); CHLORIDE 102 mmol/L (98-107); CO2 29 mmol/L (21-32); CREATININE 1.1 mg/dL (0.55-1.3); GLUCOSE,RANDOM 99 mg/dL (74-106); POTASSIUM 3.7 mmol/L (3.5-5.1); SGOT/AST 37 U/L (15-37); SGPT/ALT 65 U/L (13-61); SODIUM 138 mmol/L (136-145)
[2018-08-05 08:09] LABS: EPI CELLS RARE /HPF (FEW); URINE HYALINE CAST 4 /lpf; URINE MUCUS RARE
[2018-08-05] MEDS ORDERED: LABETALOL HCL 5 MG/1 ML (100MG/20 ML VIAL) IVPUSH ONE ×2 (08:42→10:03)
--- NOTE | 2018-08-05 08:46 | PDOC ---
*Physical Exam - Vital Signs Last Vital Signs Temp Pulse Resp BP Pulse Ox 98.4 F 85 16 174/117 H 98 08/05/18 07:33 08/05/18 07:33 08/05/18 07:33 08/05/18 07:33 08/05/18 07:33 - Physical Exam Comments: 08/05/18 08:45 Patient endorsed to me by Dr. Chavez. Patient is a 42-year-old male with history of hypertension who is noncompliant with his antihypertensive regimen. Patient came in with elevated blood pressure, headache with nausea. Patient was given metoprolol and hydrochlorothiazide at his previous doses. Patient is resting comfortably but the blood pressure has failed to improve. We'll administer 20 mg of IV labetalol. Will reassess. ED Treatment Course - LABORATORY CBC & Chemistry Diagram: 08/05/18 06:53 08/05/18 06:53 - ADDITIONAL ORDERS Additional order review: Laboratory Results 08/05/18 08/05/18 08/05/18 06:53 06:53 06:53 Sodium 138 Potassium 3.7 Chloride 102 Carbon Dioxide 29 Anion Gap 6 L BUN 10 Creatinine 1.1 Creat Clearance w eGFR > 60 Random Glucose 99 Calcium 9.3 Total Bilirubin 0.4 AST 37 ALT 65 H Alkaline Phosphatase 99 Troponin I 0.02 Total Protein 8.0 Albumin 3.8 Urine Color Ltyellow Urine Appearance Clear Urine pH 7.0 Ur Specific Carpenter 1.015 Urine Protein 3+ H Urine Glucose (UA) Negative Urine Ketones Negative Urine Blood Negative Urine Nitrite Negative Urine Bilirubin Negative Urine Urobilinogen Negative Ur Leukocyte Esterase Negative Urine WBC (Auto) 1 Urine RBC (Auto) <1 Ur Epithelial Cells Rare Hyaline Casts 4 Urine Mucus Rare 08/05/18 06:53 RBC 5.73 H MCV 87.6 MCHC 33.0 RDW 14.3 MPV 10.3 Neutrophils % 65.1 Lymphocytes % 23.4 D Monocytes % 8.9 Eosinophils % 1.6 D Basophils % 1.0 - Medications Given in the ED: ED Medications Discontinued Medications Generic Name Dose Route Start Last Admin Trade Name Freq PRN Reason Stop Dose Admin Hydrochlorothiazide 12.5 mg 08/05/18 06:33 08/05/18 06:51 Hctz - PO 08/05/18 06:34 12.5 mg ONCE ONE Administration Metoprolol Tartrate 50 mg 08/05/18 06:33 08/05/18 06:51 Lopressor - PO 08/05/18 06:34 50 mg ONCE ONE Administration Medical Decision Making - Medical Decision Making 08/05/18 12:01 pt with persistantly elevated BP with MAp of [address]. [address] place on tele/obs for hypertensive emergency. *DC/Admit/Observation/Transfer Diagnosis at time of Disposition: Hypertensive emergency Headache Qualifiers: Headache type: unspecified Headache chronicity pattern: acute headache Intractability: not intractable Qualified Code(s): R51 - Headache - Discharge Dispostion Condition at time of disposition: Fair Decision to Admit order: Yes - Prescriptions Prescriptions: Hydrochlorothiazide [Hctz -] 12.5 mg PO DAILY #30 cap Metoprolol Tartrate 50 mg PO BID #30 tablet - Referrals Referrals: Jose Silva MD [Primary Care Provider] - - Patient Instructions Printed Discharge Instructions: DI for High Blood Pressure, How to Monitor Your Blood Pressure at Home Print Language: CYPRIOT - Post Discharge Activity
[2018-08-05] MEDS ORDERED: LABETALOL HCL 5 MG/1 ML (200MG/40ML VIAL) IVPB ONE (08:49)
[2018-08-05] MEDS ORDERED: ACETAMINOPHEN 500 MG TABLET (FP) PO ONE (10:07)
[2018-08-05] MEDS ORDERED: ACETAMINOPHEN 325 MG TABLET (FP) ONE (10:09)
--- NOTE | 2018-08-05 11:16 | EKG ---
Test Reason : Blood Pressure : / mmHG Vent. Rate : 086 BPM Atrial Rate : 086 BPM P-R Int : 170 ms QRS Dur : 100 ms QT Int : 376 ms P-R-T Axes : 032 022 135 degrees QTc Int : 449 ms NORMAL SINUS RHYTHM ABNORMAL ECG WHEN COMPARED WITH ECG OF 23-FEB-2018 00:10, T WAVE INVERSION NOW EVIDENT IN ANTERIOR LEADS Confirmed by YUMIKO OLSON MD ([id number]) on 08/05/2018 11:16:02 AM Referred By: Confirmed By:YUMIKO OLSON MD
--- NOTE | 2018-08-05 13:21 | HP ---
CHIEF COMPLAINT: my blood pressure is high and head hurts. PCP: Dr. Silva ([facility]) HISTORY OF PRESENT ILLNESS: 42 yo M with PMhx of HTN(poor compliance to meds) and pre-diabetic presents with one day history of headache and elevated BP. He states that he has not taken his BP meds in 4 mo secondary to just not making an appointment to see PCP. He states that at approx. 7 pm last night he started with headache and then he checked his BP and it was >200 systolic which prompted trip to ER. Upon arrival BP 193/133. In ER he received in home dose of HCTZ and Metoprolol but his BP did not budge. He subsequently received 2 rounds of IV labetolol with drop in BP 176/114. He denies CP,SOB, abdominal pain, fever, chills, recent illness, nausea or vomiting. ER course was notable for: (1)EKG shows NSR no st or t wave abnorm. with LVH (2)UA- shows 3+ protein (3) Recent Travel:denies PAST MEDICAL HISTORY:HTN, Depression, pre-diabetic PAST SURGICAL HISTORY: cyst removal from forehead. Social History: Smoking: Denies Alcohol: Denies Drugs: Denies Family History: Father of Colon Ca (age 74) Allergies No Known Allergies Allergy (Verified 02/22/18 20:04) HOME MEDICATIONS: Home Medications Medication Instructions Recorded Aspirin [Ecotrin] 81 mg PO DAILY #30 tablet. 02/23/18 Cyclobenzaprine HCl [Flexeril 10 10 mg PO DAILY #30 tablet 02/23/18 mg] Dapagliflozin Propanediol [Farxiga] 5 mg PO DAILY #30 tablet 02/23/18 Ezetimibe [Zetia] 10 mg PO DAILY #30 tablet 02/23/18 Hydrochlorothiazide [Hctz -] 12.5 mg PO DAILY #30 cap 02/23/18 Liraglutide [Victoza -] 1.2 mg SQ DAILY@0700 #1 pen.injctr 02/23/18 Metoprolol Tartrate 50 mg PO BID #60 tablet 02/23/18 Paroxetine HCl 10 mg PO DAILY #30 tablet 02/23/18 Pravastatin Sodium 20 mg PO HS #30 tablet 02/23/18 Hydrochlorothiazide [Hctz -] 12.5 mg PO DAILY #30 cap 08/05/18 Metoprolol Tartrate 50 mg PO BID #30 tablet 08/05/18 REVIEW OF SYSTEMS CONSTITUTIONAL: Absent: fever, chills, diaphoresis, generalized weakness, malaise, loss of appetite, weight change HEENT: Absent: rhinorrhea, nasal congestion, throat pain, throat swelling, difficulty swallowing, mouth swelling, ear pain, eye pain, visual changes CARDIOVASCULAR: Absent: chest pain, syncope, palpitations, irregular heart rate, lightheadedness , peripheral edema RESPIRATORY: Absent: cough, shortness of breath, dyspnea with exertion, orthopnea, wheezing, stridor, hemoptysis GASTROINTESTINAL: Absent: abdominal pain, abdominal distension, nausea, vomiting, diarrhea, constipation, melena, hematochezia GENITOURINARY: Absent: dysuria, frequency, urgency, hesitancy, hematuria, flank pain, genital pain MUSCULOSKELETAL: Absent: myalgia, arthralgia, joint swelling, back pain, neck pain SKIN: Absent: rash, itching, pallor HEMATOLOGIC/IMMUNOLOGIC: Absent: easy bleeding, easy bruising, lymphadenopathy, frequent infections ENDOCRINE: Absent: unexplained weight gain, unexplained weight loss, heat intolerance, cold intolerance NEUROLOGIC: headache Absent: , focal weakness or paresthesias, dizziness, unsteady gait, seizure, mental status changes, bladder or bowel incontinence PSYCHIATRIC: Absent: anxiety, depression, suicidal or homicidal ideation, hallucinations. PHYSICAL EXAMINATION Vital Signs - 24 hr 08/05/18 08/05/18 08/05/18 05:25 06:52 07:33 Temperature 97.8 F 98.4 F 98.4 F Pulse Rate 90 85 Pulse Rate [ 90 85 Right Apical] Respiratory 19 20 16 Rate Blood Pressure 177/123 H Blood Pressure 193/133 H 174/117 H [Right Arm] O2 Sat by Pulse 100 98 98 Oximetry (%) 08/05/18 08/05/18 08/05/18 09:57 10:23 10:38 Temperature 98.1 F 98.2 F Pulse Rate Pulse Rate [ 90 93 H 90 Right Apical] Respiratory 18 16 18 Rate Blood Pressure Blood Pressure 179/119 H 176/114 H 159/116 H [Right Arm] O2 Sat by Pulse 99 98 97 Oximetry (%) GENERAL: AAOx3 ,NAD HEAD: Normal with no signs of trauma. EYES: Pupils equal, round and reactive to light, extraocular movements intact, sclera anicteric, conjunctiva clear. No lid lag. EARS, NOSE, THROAT: Ears normal, nares patent, oropharynx clear without exudates. Moist mucous membranes. NECK: Normal range of motion, supple without lymphadenopathy, JVD, or masses. LUNGS: Breath sounds equal, clear to auscultation bilaterally. No wheezes, and no crackles. No accessory muscle use. HEART: Regular rate and rhythm, normal S1 and S2 without murmur, rub or gallop. ABDOMEN: Soft, nontender, not distended, normoactive bowel sounds, no guarding, no rebound, no masses. No hepatomegaly or splenomegaly. MUSCULOSKELETAL: Normal range of motion at all joints. No bony deformities or tenderness. No CVA tenderness. UPPER EXTREMITIES: 2+ pulses, warm, well-perfused. No cyanosis. No clubbing. No peripheral edema. LOWER EXTREMITIES: 2+ pulses, warm, well-perfused. No calf tenderness. No peripheral edema. NEUROLOGICAL: Cranial nerves II-XII intact. Normal speech. Normal gait. PSYCHIATRIC: Cooperative. Good eye contact. Appropriate mood and affect. SKIN: Warm, dry, normal turgor, no rashes or lesions noted, normal capillary refill. Laboratory Results - last 24 hr 08/05/18 08/05/18 08/05/18 06:53 06:53 06:53 WBC 10.2 H RBC 5.73 H Hgb 16.6 Hct 50.2 H MCV 87.6 MCH 29.0 MCHC 33.0 RDW 14.3 Plt Count 258 MPV 10.3 Absolute Neuts (auto) 6.6 Neutrophils % 65.1 Lymphocytes % 23.4 D Monocytes % 8.9 Eosinophils % 1.6 D Basophils % 1.0 Nucleated RBC % 0 Sodium 138 Potassium 3.7 Chloride 102 Carbon Dioxide 29 Anion Gap 6 L BUN 10 Creatinine 1.1 Creat Clearance w eGFR > 60 Random Glucose 99 Calcium 9.3 Total Bilirubin 0.4 AST 37 ALT 65 H Alkaline Phosphatase 99 Troponin I Total Protein 8.0 Albumin 3.8 Urine Color Ltyellow Urine Appearance Clear Urine pH 7.0 Ur Specific [place]be[place] 1.015 Urine Protein 3+ H Urine Glucose (UA) Negative Urine Ketones Negative Urine Blood Negative Urine Nitrite Negative Urine Bilirubin Negative Urine Urobilinogen Negative Ur Leukocyte Esterase Negative Urine WBC (Auto) 1 Urine RBC (Auto) <1 Ur Epithelial Cells Rare Hyaline Casts 4 Urine Mucus Rare 10/31/18 06:53 WBC RBC Hgb Hct MCV MCH MCHC RDW Plt Count MPV Absolute Neuts (auto) Neutrophils % Lymphocytes % Monocytes % Eosinophils % Basophils % Nucleated RBC % Sodium Potassium Chloride Carbon Dioxide Anion Gap BUN Creatinine Creat Clearance w eGFR Random Glucose Calcium Total Bilirubin AST ALT Alkaline Phosphatase Troponin I 0.02 Total Protein Albumin Urine Color Urine Appearance Urine pH Ur Specific [place] Urine Protein Urine Glucose (UA) Urine Ketones Urine Blood Urine Nitrite Urine Bilirubin Urine Urobilinogen Ur Leukocyte Esterase Urine WBC (Auto) Urine RBC (Auto) Ur Epithelial Cells Hyaline Casts Urine Mucus ASSESSMENT/PLAN: Problem List - Problem (1) Hypertensive emergency Assessment/Plan: * place on observation to telemetry. * Will restart home BP meds and monitor BP * Sodium controlled diet. * Will start TREVOR given diabetes. (2) Headache Assessment/Plan: most likely 2/2 HTN * Tylenol PRN (3) Proteinuria Assessment/Plan: may represent nephrotic syndrome but most likely hypertensive nephropathy. * Hyaline cast seen on UA * Will obtain a spot UPCR * Visit type - Emergency Visit Emergency Visit: Yes ED Registration Date: 08/05/18 Care time: The patient presented to the Emergency Department on the above date and was hospitalized for further evaluation of their emergent condition. - New Patient This patient is new to me today: Yes Date on this admission: 08/07/18 - Critical Care Critical Care patient: No
--- NOTE | 2018-08-05 15:38 | EKG ---
Test Reason : Blood Pressure : / mmHG Vent. Rate : 085 BPM Atrial Rate : 085 BPM P-R Int : 166 ms QRS Dur : 104 ms QT Int : 374 ms P-R-T Axes : 032 024 140 degrees QTc Int : 445 ms NORMAL SINUS RHYTHM ST ELEVATION CONSIDER INFERIOR INJURY OR ACUTE INFARCT ACUTE UT / STEMI Consider right ventricular involvement in acute inferior infarct ABNORMAL ECG WHEN COMPARED WITH ECG OF 05-AUG-2018 05:53, NO SIGNIFICANT CHANGE WAS FOUND Confirmed by WESLEY ZHANG, YUMIKO ([id number]) on 08/05/2018 3:37:56 PM Referred By: Confirmed By:YUMIKO OLSON MD
[2018-08-05] MEDS: LISINOPRIL 20 MG TABLET (FP) PO SCH (16:23)
[2018-08-05] MEDS: INSULIN SLIDING SCALE (NOVOLOG) 1 VIAL SQ SCH ×2 (16:39→20:59)
--- NOTE | 2018-08-05 17:30 | PN ---
Teaching Attending Note Name of Resident: John Anderson ATTENDING PHYSICIAN STATEMENT I saw and evaluated the patient. I reviewed the resident's note and discussed the case with the resident. I agree with the resident's findings and plan as documented. SUBJECTIVE:42yo M with PMH HTN and DM with known non compliance presented to the ER [facility] [place] and BP at home with SBP >200. states he has not taken his meds in 4 months. unable to clarify reason of why he has been not compliant. states OVALLE has now improved. denies CP, SOB, fever, chills, N/v/C/D, blurred vision or weakness OBJECTIVE: Last Vital Signs Temp Pulse Resp BP Pulse Ox 98.3 F 93 H 18 138/95 98 08/05/18 14:46 08/05/18 14:46 08/05/18 14:46 08/05/18 14:46 08/05/18 14:46 General NAD HEENT EOMI, PERRL CV S1 s2 RRR no murmur/rub/gallop Lungs CTA B/L no wheezing/rales/rhonchi Abdomen soft NT/ND Extremities no pedal edema ASSESSMENT AND PLAN: 42yo M with PMH HTN and DM with known non compliance presented to the ER [facility] [place] and BP at home with SBP >200. 1. HTN urgency- was re-started on home medications with some improvement. will likely require an additional agent. start lisinopril 20mg. check echo. stressed importance of medication complaince and risk of stroke and heart disease 2. DM- states hes only "pre-diabetic" but is on medications to prevent it from worsening. however does not take them. check A1c. hold oral agents. stressed importance of complaince and risks of uncontrolled sugars. 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 Leukocytosis- liekly reactive. no signs of infection. would hold abx for now 4. DVT ppx- EAM 5. possible d/c tomorrow if BP continues to be controlled.
[2018-08-05] MEDS: ACETAMINOPHEN 325 MG TABLET (FP) PO PRN (17:35)
[2018-08-05] MEDS ORDERED: ATORVASTATIN CA 10 MG TABLET (FP) PO SCH (22:00)
[2018-08-05] MEDS ORDERED: METOPROLOL TARTRATE 50 MG TABLET (FP) PO SCH (22:00)
[2018-08-06] MEDS: ACETAMINOPHEN 325 MG TABLET (FP) PO PRN (04:57)
[2018-08-06 05:32] VITALS: PULSE 89; TEMP 97.8
[2018-08-06] MEDS: INSULIN SLIDING SCALE (NOVOLOG) 1 VIAL SQ SCH ×2 (06:00→11:49)
[2018-08-06 06:57] LABS: BASO % 0.7 % (0-2.0); EOS % 1.8 % (0-4.5); HEMATOCRIT 48.6 % (35.4-49); HEMOGLOBIN 15.6 GM/dL (11.7-16.9); LYMPH % 33.6 % (8-40); MCH 28.7 pg (25.7-33.7); MCHC 32.1 g/dl (32.0-35.9); MEAN CELL VOLUME 89.3 fl (80-96); MEAN PLT VOLUME 10.2 fl (7.5-11.1); MONO % 9.6 % (3.8-10.2); NEUT % 54.3 % (42.8-82.8); PLATELET COUNT 257 K/MM3 (134-434); RBC 5.44 M/mm3 (4.00-5.60); RDW 14.8 % (11.9-15.9); WHITE BLOOD COUNT 8.4 K/mm3 (4.0-10.0)
[2018-08-06 07:23] LABS: ALBUMIN 3.4 g/dl (3.4-5.0); ALK PHOS 79 U/L (45-117); ANION GAP 9 MMOL/L (8-16); BILIRUBIN,TOTAL 0.4 mg/dL (0.2-1); BLOOD UREA NITROGEN 17 mg/dL (7-18); CALCIUM 9.1 mg/dL (8.5-10.1); CHLORIDE 101 mmol/L (98-107); CO2 29 mmol/L (21-32); CREATININE 1.1 mg/dL (0.55-1.3); GLUCOSE,RANDOM 106 mg/dL (74-106); MAGNESIUM 2.3 mg/dL (1.8-2.4); POTASSIUM 3.5 mmol/L (3.5-5.1); SGOT/AST 30 U/L (15-37); SGPT/ALT 58 U/L (13-61); SODIUM 139 mmol/L (136-145)
[2018-08-06] MEDS ORDERED: POLYETHYLENE GLYCOL 3350 119 GM BTL PO ONE (07:41)
[2018-08-06 08:48] VITALS: BP 144/93
[2018-08-06] MEDS: LISINOPRIL 20 MG TABLET (FP) PO SCH (09:19)
[2018-08-06] MEDS ORDERED: CYCLOBENZAPRINE HCL 10 MG TABLET (FP) PO SCH (10:00)
[2018-08-06] MEDS ORDERED: HYDROCHLOROTHIAZIDE 12.5 MG CAPSULE (FP) PO SCH (10:00)
[2018-08-06] MEDS ORDERED: ASPIRIN COATED 81 MG TABLET.EC PO SCH (10:00)
[2018-08-06] MEDS ORDERED: HYDROCHLOROTHIAZIDE 25 MG TABLET (FP) PO SCH (10:00)
[2018-08-06] MEDS ORDERED: PARoxetine HCL 10 MG TABLET (FP) PO SCH (10:00)
[2018-08-06] MEDS ORDERED: ENOXAPARIN NA (PORCINE) 40 MG/0.4 ML DISP.SYRIN SQ SCH (10:00)
[2018-08-06] MEDS ORDERED: EZETIMIBE 10 MG TABLET (FP) PO SCH (10:00)
--- NOTE | 2018-08-06 12:35 | PN ---
Teaching Attending Note Name of Resident: Osmani Villanueva ATTENDING PHYSICIAN STATEMENT I saw and evaluated the patient. I reviewed the resident's note and discussed the case with the resident. I agree with the resident's findings and plan as documented. SUBJECTIVE:asymptomatic. states OVALLE has resolved. states he is not currently on medications for DM. denies Cp, SOB, fever, chills, N/V/C/d OBJECTIVE: Last Vital Signs Temp Pulse Resp BP Pulse Ox 97.8 F 89 20 144/93 97 08/06/18 08:48 08/06/18 08:48 08/06/18 08:48 08/06/18 08:48 08/06/18 08:46 General NAD CV S1 s2 RRR no murmur/rub/gallop ASSESSMENT AND PLAN: 42yo M with PMH HTN and DM with known non compliance presented to the ER wtih OVALLE and BP at home with SBP >200. 1. HTN urgency-now improved. will increase HCTZ to 25mg to optimize control. cont lisinopril and metoprolol. pt states he has no problem taking a medication twice a day and can cont with this regimen. stressed importance of follow up. states he [facility] at [facility] fr[facility]. echo done several months ago. reviewed 2. DM- A1c 6.5. does not take medications at home although his med list states it. will start metformin 500mg daily. ed physicians cheli who educated on dietary changes. will need A1c repeated in 3 months. 3. Leukocytosis- liekly reactive. no signs of infection. would hold abx for now 4. DVT ppx- EAM 5. d/c home. spoke with patients sister who speaks [place]. stressed importance of compliance and follow up. risks assoc with uncontrolled HTN and DM.
--- NOTE | 2018-08-06 14:48 | EKG ---
Test Reason : Blood Pressure : / mmHG Vent. Rate : 092 BPM Atrial Rate : 092 BPM P-R Int : 162 ms QRS Dur : 098 ms QT Int : 366 ms P-R-T Axes : 035 032 146 degrees QTc Int : 452 ms NORMAL SINUS RHYTHM LEFT VENTRICULAR HYPERTROPHY WITH REPOLARIZATION ABNORMALITY ABNORMAL ECG WHEN COMPARED WITH ECG OF 05-AUG-2018 06:50, NO SIGNIFICANT CHANGE WAS FOUND Confirmed by YOU MARRUFO MD ([id number]) on 08/06/2018 2:47:57 PM Referred By: Confirmed By:YOU MARRUFO MD
[2018-08-06 14:50] VITALS: BMI 38.7
--- NOTE | 2018-08-06 15:56 | DS ---
Physical Exam: SUBJECTIVE: Patient seen and examined at bedside. Denies any headache, chest pain, or shortness of breath. Eager to return home. OBJECTIVE: Vital Signs Period Temp Pulse Resp BP Sys/Gonzalez Pulse Ox Last 24 Hr 97.7 F-98.1 F 89-103 20-20 144-163/92-99 95-97 PHYSICAL EXAM GENERAL: NAD AAOx3 HEAD: Normal with no signs of trauma. EYES: PERRLA, EOMI, No scleral icterus ENT: MMM, no erythema or tonsilar exudate, no adenopathy NECK: Supple, no JVD LUNGS: CTA B/L, no wheezes, rhonchi, or rales HEART: RRR No MRG S1S2. ABDOMEN: ND NT No HSM EXTREMITIES: No CCE, DP pulses 2+, no breaks or cracks in both feet, no onychomyosis NEUROLOGICAL: CN 2-12 intact PSYCH: Normal mood, normal affect. SKIN: No rashes or lesions appreciated LABS Laboratory Results - last 24 hr 08/05/18 08/05/18 08/06/18 16:26 20:40 05:30 WBC 8.4 RBC 5.44 Hgb 15.6 Hct 48.6 MCV 89.3 MCH 28.7 MCHC 32.1 RDW 14.8 Plt Count 257 MPV 10.2 Absolute Neuts (auto) 4.5 Neutrophils % 54.3 Lymphocytes % 33.6 D Monocytes % 9.6 Eosinophils % 1.8 Basophils % 0.7 Nucleated RBC % 0 Sodium Potassium Chloride Carbon Dioxide Anion Gap BUN Creatinine Creat Clearance w eGFR POC Glucometer 129 114 Random Glucose Hemoglobin A1c % Calcium Phosphorus Magnesium Total Bilirubin AST ALT Alkaline Phosphatase Total Protein Albumin 08/06/18 08/06/18 08/06/18 05:30 05:30 05:48 WBC RBC Hgb Hct MCV MCH MCHC RDW Plt Count MPV Absolute Neuts (auto) Neutrophils % Lymphocytes % Monocytes % Eosinophils % Basophils % Nucleated RBC % Sodium 139 Potassium 3.5 Chloride 101 Carbon Dioxide 29 Anion Gap 9 BUN 17 Creatinine 1.1 Creat Clearance w eGFR > 60 POC Glucometer 122 Random Glucose 106 Hemoglobin A1c % 6.5 H Calcium 9.1 Phosphorus 5.0 H Magnesium 2.3 Total Bilirubin 0.4 AST 30 ALT 58 Alkaline Phosphatase 79 Total Protein 7.0 Albumin 3.4 08/06/18 11:47 WBC RBC Hgb Hct MCV MCH MCHC RDW Plt Count MPV Absolute Neuts (auto) Neutrophils % Lymphocytes % Monocytes % Eosinophils % Basophils % Nucleated RBC % Sodium Potassium Chloride Carbon Dioxide Anion Gap BUN Creatinine Creat Clearance w eGFR POC Glucometer 111 Random Glucose Hemoglobin A1c % Calcium Phosphorus Magnesium Total Bilirubin AST ALT Alkaline Phosphatase Total Protein Albumin HOSPITAL COURSE: Date of Admission:08/05/18 Pt presented to [facility] ED on 08/05/18 complaining of headache and elevated blood pressure. Pt's BP was greater than 200 systolic. In the emergency department, pt 's blood pressure measurement was 177/123. While in the emergency department, pt received HCTZ 12.5 po, Lopressor 50 mg po, Labetalol 20 mg ivpush, Labetalol 40 mg ivpush, Lisinopril 20 mg po, Metoprolol succinate 50 mg po twice, hctz 20 mg. Pt's medication list was reconciled and pt was also started on Metformin 500 mg PO Daily. Pt was counseled on the importance of medication compliance and the adverse health effects of noncompliance. Metoprolol tartrate 50 mg twice per day, Hydrochlorothiazide 25 mg once per day, Atorvastatin 10 mg once per day , and Lisinopril 20 mg once per day. Date of Discharge: 08/06/18 Minutes to complete discharge: 35 Discharge Summary Reason For Visit: HYPERTENSIVE EMERGENCY Condition: Improved - Instructions Diet, Activity, Other Instructions: You presented to [facility] ED on 08/05/18 complaining of headache and elevated blood pressure. Before you came to the emergency department, you noted a blood pressure of greater than 200 systolic (top number). In the emergency department , your blood pressure measurement was 177/123. While in the emergency department , you received I.V medications to help decrease your blood pressure. you further endorses that you haven't been taking your blood pressure medications for nearly 4 months. It is very crucial that you resume taking your blood pressure medications to prevent deterioration of your health. Uncontrolled blood pressure is known to have very dangerous effects on your heart, lungs, brain, and other organ systems. Stroke, heart attack, kidney disease, and many other illnesses may occur of you continue to not take your prescribed medications. Please follow up and see your Primary Care physician this week. We place a phone call to your pharmacy and reconciled your medications. You have been prescribed Metformin. this is a medication to help control your diabetes. Please take this medication as prescribed along with your Metoprolol tartrate 50 mg twice per day, Hydrochlorothiazide 25 mg once per day, Atorvastatin 10 mg once per day, and Lisinopril 20 mg once per day Please see your Primary Care doctor this week: Dr John Anderson- [phone] Dr Jose Silva - [phone] Referrals: Jose Silva MD [Primary Care Provider] - John Anderson RES [Resident] - Disposition: HOME - Home Medications Comprehensive Discharge Medication List: Ambulatory Orders Pravastatin Sodium 20 mg PO HS #30 tablet 02/23/18 Aspirin [Ecotrin] 81 mg DAILY 08/06/18 Hydrochlorothiazide [Hctz -] 25 mg PO DAILY #30 tablet 08/06/18 Lisinopril [Prinivil] 20 mg PO DAILY #30 tablet 08/06/18 Metoprolol Tartrate [Lopressor -] 50 mg PO BID #60 tablet 08/06/18 metFORMIN HCL [Metformin HCl] 500 mg PO DAILY #30 tablet 08/06/18 This patient is new to me today: Yes Date on this admission: 08/06/18 Emergency Visit: Yes ED Registration Date: 08/05/18 Care time: The patient presented to the Emergency Department on the above date and was hospitalized for further evaluation of their emergent condition. Critical Care patient: No - Discharge Referral Referred to [facility] No
[2018-08-06] MEDS ORDERED: HYDROCHLOROTHIAZIDE 12.5 MG CAPSULE (FP) PO ONE (22:45)
== END 2018-08-06 14:38 | disposition home or self-care (01) ==
LOC: JER 05:20 → JERBED 12:04 → J4W 14:24
PROVIDERS: ADMIT Internal Medicine; ATTEND Internal Medicine
PROC: 3E033GC Introduction of Other Therapeutic Substance into Peripheral Vein, Percutaneous Approach (ICD-10-PCS; principal; 2018-08-05)
PROC: 3E013GC Introduction of Other Therapeutic Substance into Subcutaneous Tissue, Percutaneous Approach (ICD-10-PCS; 2018-08-05)
DX: I16.1 Hypertensive emergency (principal); G44.209 Tension-type headache, unspecified, not intractable; Z91.14 Patient's other noncompliance with medication regimen; E11.9 Type 2 diabetes mellitus without complications; R80.9 Proteinuria, unspecified; D72.829 Elevated white blood cell count, unspecified; Z79.84 Long term (current) use of oral hypoglycemic drugs; Z79.82 Long term (current) use of aspirin
CPT/HCPCS: 36415; 71046-TC-FY; 80053; 81003; 81015; 82962; 83036; 83735; 84100; 84484; 85025; 93005; 93010; 96372; 96374; 96376; 99284-25; G0378

== ENCOUNTER 2023-02-08 07:23 | Emergency (ER) | payer OTHER ==
[2023-02-08 07:31] VITALS: BMI 43.7
[2023-02-08] MEDS ORDERED: ASPIRIN 81 MG CHEWABLE TABLETS PO ONE (07:40)
[2023-02-08] MEDS ORDERED: TICAGRELOR 90 MG TABLET PO ONE (07:40)
[2023-02-08] MEDS ORDERED: hydrALAZINE HCL 20 MG/ML VIAL IVPUSH ONE (07:41)
[2023-02-08] MEDS ORDERED: HEPARIN NA (PORCINE) 5,000 UNITS/ML 1ML VIAL IVPUSH PRN (07:41)
[2023-02-08] MEDS ORDERED: HEPARIN NA (PORCINE) 5,000 UNITS/ML 1ML VIAL ONE (07:46)
[2023-02-08] MEDS ORDERED: morphine CARPU-JECT 2 MG/1 ML DISP.SYRIN IVPUSH ONE (07:53)
[2023-02-08 08:03] LABS: BASO % 0.8 % (0-2.0); EOS % 2.1 % (0-4.5); HEMATOCRIT 49.7 % (35.4-49); HEMOGLOBIN 17.1 GM/dL (11.7-16.9); LYMPH % 40.7 % (8-40); MCH 29.8 pg (25.7-33.7); MCHC 34.3 g/dl (32.0-35.9); MEAN CELL VOLUME 86.8 fl (80-96); MEAN PLT VOLUME 10.5 fl (7.5-11.1); NEUT % 43.4 % (42.8-82.8); PLATELET COUNT 245 10^3/uL (134-434); RBC 5.73 M/mm3 (4.00-5.60); WHITE BLOOD COUNT 11.5 K/mm3 (4.0-10.0)
[2023-02-08 08:09] VITALS: BP 177/114; PULSE 106; RESP 18
[2023-02-08 08:15] LABS: INR 1.02 (0.83-1.09); PROTHROMBIN TIME (PATIENT) 11.8 SEC (9.7-13.0)
[2023-02-08 08:18] LABS: ACTIVATED PTT 32.5 SECONDS (25.2-36.5)
[2023-02-08 08:26] VITALS: TEMP 97.8
[2023-02-08 08:26] LABS: POTASSIUM 4.3 mmol/L (3.5-5.1)
[2023-02-08 08:28] LABS: CALCIUM 9.5 mg/dL (8.5-10.1)
[2023-02-08 08:30] LABS: ALBUMIN 3.7 g/dl (3.4-5.0); BLOOD UREA NITROGEN 22.1 mg/dL (7-18); MAGNESIUM 1.9 mg/dL (1.8-2.4)
[2023-02-08 08:32] LABS: CREATININE 1.7 mg/dL (0.55-1.3); PHOSPHOROUS 3.6 mg/dL (2.5-4.9)
[2023-02-08 08:33] LABS: BILIRUBIN,TOTAL 0.3 mg/dL (0.2-1)
== END 2023-02-08 08:05 | disposition short-term general hospital (02) ==
LOC: JER 07:23
PROC: 3E033GC Introduction of Other Therapeutic Substance into Peripheral Vein, Percutaneous Approach (ICD-10-PCS; principal; 2023-02-08)
PROC: 3E033GC Introduction of Other Therapeutic Substance into Peripheral Vein, Percutaneous Approach (ICD-10-PCS; 2023-02-08)
PROC: 3E033GC Introduction of Other Therapeutic Substance into Peripheral Vein, Percutaneous Approach (ICD-10-PCS; 2023-02-08)
DX: R07.9 Chest pain, unspecified (principal); I21.3 ST elevation (STEMI) myocardial infarction of unspecified site; Z20.822 Contact with and (suspected) exposure to COVID-19
CPT/HCPCS: 0241U-QW; 36415; 71045-TC-FY; 80053; 82550; 82553; 83735; 84100; 84443; 85025; 85610; 85730; 93005; 93010; 99291; J1644

== ENCOUNTER 2023-09-21 17:37 | Inpatient (IN) | payer OTHER ==
[2023-09-21 18:00] VITALS: BMI 37.5
[2023-09-21] MEDS ORDERED: TRIMETHOBENZAMIDE HCL 200MG/2ML INJ IM ONE (20:45)
[2023-09-21] MEDS: TRIMETHOBENZAMIDE HCL 200MG/2ML INJ IM ONE (20:50)
[2023-09-21 20:54] LABS: EOS % 0.3 % (0-4.5); HEMATOCRIT 34.4 % (35.4-49); HEMOGLOBIN 11.2 GM/dL (11.7-16.9); LYMPH % 30.7 % (8-40); MCH 27.5 pg (25.7-33.7); MCHC 32.4 g/dl (32.0-35.9); MEAN CELL VOLUME 84.8 fl (80-96); MEAN PLT VOLUME 10.3 fl (7.5-11.1); MONO % 8.6 % (3.8-10.2); NEUT % 59.4 % (42.8-82.8); PLATELET COUNT 220 10^3/uL (134-434); RBC 4.06 M/mm3 (4.00-5.60); RDW 14.7 % (11.9-15.9); RETICULOCYTES 2.34 % (0.5-1.5); WHITE BLOOD COUNT 14.3 K/mm3 (4.0-10.0)
[2023-09-21 20:59] LABS: INR 1.09 (0.83-1.09); PROTHROMBIN TIME (PATIENT) 12.6 SEC (9.7-13.0)
[2023-09-21 21:02] LABS: ACTIVATED PTT 22.6 SECONDS (25.2-36.5)
[2023-09-21 21:07] LABS: POTASSIUM 3.7 mmol/L (3.5-5.1)
[2023-09-21 21:09] LABS: ALBUMIN 3.1 g/dl (3.4-5.0); BLOOD UREA NITROGEN 44.9 mg/dL (7-18); CALCIUM 8.8 mg/dL (8.5-10.1)
[2023-09-21 21:13] LABS: CREATININE 1.8 mg/dL (0.55-1.3)
[2023-09-21 21:14] LABS: BILIRUBIN,TOTAL 0.4 mg/dL (0.2-1); TOT PROT 6.1 g/dl (6.4-8.2)
[2023-09-21] MEDS ORDERED: ASPIRIN 81 MG CHEWABLE TABLETS ONE (22:20)
[2023-09-21] MEDS: ASPIRIN 81 MG CHEWABLE TABLETS PO ONE (22:22)
[2023-09-22] MEDS ORDERED: ACETAMINOPHEN 325 MG TABLET (FP) ONE (00:57)
[2023-09-22] MEDS: ACETAMINOPHEN 325 MG TABLET (FP) PO ONE (01:02)
[2023-09-22] MEDS: SODIUM CHLORIDE 1,000 ML IV STA (01:02)
[2023-09-22 03:36] LABS: EOS % 0.5 % (0-4.5); HEMATOCRIT 28.8 % (35.4-49); HEMOGLOBIN 9.5 GM/dL (11.7-16.9); LYMPH % 29.8 % (8-40); MCH 27.6 pg (25.7-33.7); MCHC 32.8 g/dl (32.0-35.9); MEAN PLT VOLUME 9.8 fl (7.5-11.1); MONO % 9.5 % (3.8-10.2); NEUT % 59.2 % (42.8-82.8); PLATELET COUNT 196 10^3/uL (134-434); RBC 3.43 M/mm3 (4.00-5.60); RDW 14.7 % (11.9-15.9); WHITE BLOOD COUNT 10.8 K/mm3 (4.0-10.0)
[2023-09-22] MEDS: LACTATED RINGERS SOLUTION 1,000 ML/1,000 ML INFUS.BAG IV SCH (04:23)
[2023-09-22 08:22] LABS: BASO % 0.9 % (0-2.0); EOS % 1.3 % (0-4.5); HEMATOCRIT 29.4 % (35.4-49); HEMOGLOBIN 9.6 GM/dL (11.7-16.9); LYMPH % 32.1 % (8-40); MCH 27.6 pg (25.7-33.7); MCHC 32.6 g/dl (32.0-35.9); MEAN CELL VOLUME 84.7 fl (80-96); MEAN PLT VOLUME 10.6 fl (7.5-11.1); MONO % 10.4 % (3.8-10.2); NEUT % 55.3 % (42.8-82.8); PLATELET COUNT 170 10^3/uL (134-434); RBC 3.48 M/mm3 (4.00-5.60); RDW 14.6 % (11.9-15.9); WHITE BLOOD COUNT 10.5 K/mm3 (4.0-10.0)
[2023-09-22 08:50] LABS: POTASSIUM 3.5 mmol/L (3.5-5.1)
[2023-09-22 09:09] LABS: CALCIUM 8.4 mg/dL (8.5-10.1)
[2023-09-22 09:10] LABS: MAGNESIUM 2.1 mg/dL (1.8-2.4)
[2023-09-22 09:11] LABS: ALBUMIN 2.9 g/dl (3.4-5.0); BLOOD UREA NITROGEN 34.3 mg/dL (7-18)
[2023-09-22 09:13] LABS: CREATININE 1.4 mg/dL (0.55-1.3)
[2023-09-22 09:14] LABS: PHOSPHOROUS 2.8 mg/dL (2.5-4.9)
[2023-09-22 09:15] LABS: TOT PROT 5.5 g/dl (6.4-8.2)
[2023-09-22 09:16] LABS: BILIRUBIN,TOTAL 0.4 mg/dL (0.2-1)
[2023-09-22] MEDS: INSULIN ASPART SLIDING SCALE (NOVOLOG) 1 VIAL SQ SCH (10:07)
[2023-09-22] MEDS: ISOSORBIDE MONONITRATE 30 MG TAB.SR.24H (FP) PO SCH (10:24)
[2023-09-22] MEDS: PANTOPRAZOLE SODIUM 40 MG VIAL IVPUSH SCH (10:24)
[2023-09-23] MEDS: ROSUVASTATIN CA 20 MG TABLET PO SCH (02:00)
[2023-09-23] MEDS: EZETIMIBE 10 MG TABLET (FP) PO SCH (02:00)
[2023-09-23 07:38] LABS: POTASSIUM 3.4 mmol/L (3.5-5.1)
[2023-09-23 07:42] LABS: CALCIUM 8.1 mg/dL (8.5-10.1)
[2023-09-23 07:43] LABS: BLOOD UREA NITROGEN 17.4 mg/dL (7-18)
[2023-09-23 07:46] LABS: CREATININE 1.3 mg/dL (0.55-1.3)
[2023-09-23 10:25] LABS: EPI CELLS 8 /uL (0-25.1); HYALINE CASTS 0 /uL (0-3.1); PH,URINE 7.5 (5.0-8.0); URINE APPEARANCE CLEAR; URINE BACTERIA 29 /uL (0-1359); URINE BILIRUBIN NEGATIVE (NEGATIVE); URINE COLOR YELLOW; URINE GLUCOSE (UA) 2+ (NEGATIVE); URINE KETONE 1+ (NEGATIVE); URINE LEUK ESTERASE NEGATIVE (NEGATIVE); URINE NITRITE NEGATIVE (NEGATIVE); URINE PROTEIN 2+ (NEGATIVE); URINE RBC 2 /uL (0-23.9); URINE WBC 4 /uL (0-25.8)
[2023-09-23] MEDS: INSULIN (LEVEMIR) 100 UNITS/ML UNITS SQ SCH (12:31)
[2023-09-23] MEDS: POLYETHYLENE GLYCOL (HEALTHYLAX) 3350 17 GM PACKET PO SCH (12:33)
[2023-09-23 12:54] LABS: HEMATOCRIT 28.5 % (35.4-49); HEMOGLOBIN 9.1 GM/dL (11.7-16.9); MCH 27.5 pg (25.7-33.7); MCHC 31.9 g/dl (32.0-35.9); MEAN CELL VOLUME 86.1 fl (80-96); MEAN PLT VOLUME 9.8 fl (7.5-11.1); PLATELET COUNT 224 10^3/uL (134-434); RBC 3.31 M/mm3 (4.00-5.60); RDW 14.8 % (11.9-15.9)
[2023-09-24 07:44] LABS: HEMATOCRIT 28.8 % (35.4-49); HEMOGLOBIN 9.3 GM/dL (11.7-16.9); MCHC 32.2 g/dl (32.0-35.9); MEAN PLT VOLUME 9.7 fl (7.5-11.1); PLATELET COUNT 248 10^3/uL (134-434); RBC 3.31 M/mm3 (4.00-5.60); RDW 14.9 % (11.9-15.9); WHITE BLOOD COUNT 7.1 K/mm3 (4.0-10.0)
[2023-09-24 07:56] LABS: POTASSIUM 3.7 mmol/L (3.5-5.1)
[2023-09-24 08:01] LABS: CALCIUM 8.4 mg/dL (8.5-10.1)
[2023-09-24 08:02] LABS: ALBUMIN 2.9 g/dl (3.4-5.0); BLOOD UREA NITROGEN 11.4 mg/dL (7-18); MAGNESIUM 2.2 mg/dL (1.8-2.4)
[2023-09-24 08:05] LABS: CREATININE 1.4 mg/dL (0.55-1.3); PHOSPHOROUS 3.3 mg/dL (2.5-4.9)
[2023-09-24 08:06] LABS: BILIRUBIN,TOTAL 0.4 mg/dL (0.2-1); TOT PROT 5.9 g/dl (6.4-8.2)
[2023-09-24] MEDS ORDERED: INSULIN (NOVOLOG) ASPART 100 UNITS/ML 10ML VIAL ONE (11:05)
[2023-09-24] MEDS: POTASSIUM CHLORIDE TABS 20 MEQ TABLET.ER (FP) PO ONE (21:19)
[2023-09-25] MEDS: MELATONIN 5 MG TABLETS PO ONE (06:17)
[2023-09-25] MEDS ORDERED: INSULIN (NOVOLOG) ASPART 100 UNITS/ML 10ML VIAL ONE (07:11)
[2023-09-25 07:14] LABS: HEMATOCRIT 28.7 % (35.4-49); HEMOGLOBIN 9.4 GM/dL (11.7-16.9); MCH 28.2 pg (25.7-33.7); MCHC 32.7 g/dl (32.0-35.9); MEAN CELL VOLUME 86.1 fl (80-96); MEAN PLT VOLUME 9.7 fl (7.5-11.1); PLATELET COUNT 264 10^3/uL (134-434); RBC 3.33 M/mm3 (4.00-5.60); RDW 15.4 % (11.9-15.9); WHITE BLOOD COUNT 8.1 K/mm3 (4.0-10.0)
[2023-09-25 07:32] LABS: POTASSIUM 3.7 mmol/L (3.5-5.1)
[2023-09-25 07:46] LABS: CALCIUM 8.4 mg/dL (8.5-10.1); MAGNESIUM 2.2 mg/dL (1.8-2.4)
[2023-09-25 07:49] LABS: CREATININE 1.4 mg/dL (0.55-1.3); PHOSPHOROUS 3.4 mg/dL (2.5-4.9)
[2023-09-25 07:50] LABS: BILIRUBIN,TOTAL 0.5 mg/dL (0.2-1); TOT PROT 6.1 g/dl (6.4-8.2)
[2023-09-25] MEDS: PANTOPRAZOLE 40 MG TABLET PO SCH (10:40)
[2023-09-25] MEDS: ASPIRIN COATED 81 MG TABLET.EC PO SCH (12:32)
[2023-09-25] MEDS: PEG 3350/NA SULF BICARB CL/KCL 4000 ML SOLN.RECON PO ONE (15:00)
[2023-09-25] MEDS ORDERED: BISACODYL 5 MG TABLET.DR (FP) PO ONE (20:00)
[2023-09-25] MEDS: BISACODYL 5 MG TABLET.DR (FP) PO ONE (20:40)
[2023-09-26 06:13] VITALS: RESP 20
[2023-09-26 20:30] VITALS: BP 118/82; PULSE 62; TEMP 98.6
== END 2023-09-26 11:42 | disposition left against medical advice (07) | DRG 253 ==
LOC: JER 17:37 → JERBED 09-22 00:44 → J4W 09-23 05:14
PROVIDERS: ADMIT Internal Medicine; ATTEND Internal Medicine
DX: K92.2 Gastrointestinal hemorrhage, unspecified (principal); E78.5 Hyperlipidemia, unspecified; I24.89 Other forms of acute ischemic heart disease; R11.2 Nausea with vomiting, unspecified; I12.9 Hypertensive chronic kidney disease with stage 1 through stage 4 chronic kidney disease, or unspecified chronic kidney disease; E11.65 Type 2 diabetes mellitus with hyperglycemia; E11.22 Type 2 diabetes mellitus with diabetic chronic kidney disease; N18.9 Chronic kidney disease, unspecified; N17.9 Acute kidney failure, unspecified; D62 Acute posthemorrhagic anemia; R00.0 Tachycardia, unspecified; R63.0 Anorexia; I25.10 Atherosclerotic heart disease of native coronary artery without angina pectoris; D64.9 Anemia, unspecified; E66.9 Obesity, unspecified; Z68.37 Body mass index [BMI] 37.0-37.9, adult; Z95.5 Presence of coronary angioplasty implant and graft
CPT/HCPCS: 0241U-QW; 36415; 71046-TC-FY; 74176-TC; 76700-TC; 76705-TC; 80048; 80053; 80061; 81003; 82272; 82550; 82553; 82607; 82728; 82746; 82962; 83036; 83540; 83550; 83605; 83735; 84100; 84484; 85025; 85027; 85045; 85610; 85730; 86704; 86709; 86803; 86850; 86900; 86901; 87040; 87076; 87340; 87517; 93005; 93010; 93306-TC; 99285-25